=== PATIENT | female | born 1980 | race Caucasian/White ===

== ENCOUNTER 2017-04-21 17:40 | Emergency (ER) | payer OTHER ==
[~2017-04-21] VITALS: Ht 172.7 cm; Wt 68.0 kg
[~2017-04-21 17:40] MED LIST: CEPH500C PO; DCS100C PO; DIAZ5TAB49; ENXP40I.4 SC; FLC1T PO; FURO20TA4 PO; HYDR-3720 PO; HYZAAR; IBP800T PO; NITR-65 PO; OXYC1TAB12 PO; PHEN-452 PO; PREN1TAB39 PO; PRM25T PO; ZLP10T
--- NOTE | 2017-04-21 18:07 | ED Lower Extremity ---
General Chief Complaint: Lower Extremity Stated Complaint: R LEG SWELLING/DISCOMFORT Source: patient Exam Limitations: no limitations History of Present Illness Time seen by provider: 18:01 Initial Comments Patient states that for the last several days she's had progressively worsening pain in the anterior portion of her right lower leg. 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 She attributes this pain from her workplace but this pain is made her walk funny and the last day she says she's felt a gurgling sensation in her lower right leg and it started swelling and feeling painful in her calf. She is concerned because she felt a little short of breath and she is not sure if that was from anxiety from worry about having a DVT. 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 She has factor V Leiden but is not currently on any kind of blood thinners. She says it is no redness but she's felt knot about mcfp down her calf in the back. Allergies and Home Medications Allergies Coded Allergies: morphine (Verified Allergy, Unknown, 06/03/06) Home Medications Cephalexin Monohydrate 500 Mg Capsule, 1 EACH PO TID, #15 Ref 0 Prescribed by: DANAY PIEDRA on 05/02/15 1603 Diazepam 10 Mg Tablet, 10 MG PO PRN, (Reported) Docusate Sodium 100 Mg Cap, 100 MG PO BID, #60 Prescribed by: RANDY MURRIETA on 04/29/15 0821 Enoxaparin 40 Mg/0.4 Ml Soln, 40 MG SC DAILY, (Reported) Ibuprofen 800 Mg Tab, 800 MG PO Q6H, #60 Prescribed by: RANDY MURRIETA on 04/29/15 0821 Oxycodone Hcl/Acetaminophen 1 Tab Tablet, 1-2 TAB PO Q4H PRN for PAIN, #60 Prescribed by: RANDY MURRIETA on 04/29/15 0821 Vits W-Ca,Fe,Fa(<1MG) 1 Each Tablet, 1 TAB PO DAILY, (Reported) Constitutional: No chills, No diaphoresis, No malaise Respiratory: No cough, short of breath (mild while she felt anxious but not presently.), No wheezing Cardiovascular: No chest pain, No palpitations Gastrointestinal: No abdominal pain, No constipation, No diarrhea, No nausea Genitourinary: No discharge, No dysuria : No Musculoskeletal: back pain (right lower muscle stiffness), muscle stiffness Skin: No change in color, No pruritus, No rash Psychiatric/Neurological: Anxiety Past Yxdmkak-Uwyxgh-Taqmks Hx Patient Social History Recent Foreign Travel: No Contact w/Someone Who Travel: No Immunizations Up To Date Tetanus Booster (TDap): Less than 5yrs PED Vaccines UTD: Yes Date of Influenza Vaccine: Aug 14, 2011 Surgeries HX Surgeries: Yes ([place] Teeth 2008, Lap Chol 2005, CS 1998, EGD 1998, LAP BAND 2009) Surgeries: Section Respiratory Hx Respiratory Disorders: No Cardiovascular Hx Cardiac Disorders: No Neurological Hx Neurological Disorders: No Reproductive System Hx Reproductive Disorders: No Sexually Transmitted Disease: No HIV/AIDS: No Female Reproductive Disorders: Denies Genitourinary Hx Genitourinary Disorders: No Gastrointestinal Hx Gastrointestinal Disorders: No Musculoskeletal Hx Musculoskeletal Disorders: No Endocrine Hx Endocrine Disorders: No HEENT HX ENT Disorders: Yes HEENT Disorders: Cataract Cancer Hx Cancer: No Psychosocial Hx Psychiatric Problems: Yes Behavioral Health Disorders: Anxiety Integumentary HX Skin/Integumentary Disorder: No Blood Transfusions Hx 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 ) Family Medical History Significant Family History: No Pertinent Family Hx Family Medial History: Cardiovascular disease 19 FATHER Cataracts 19 MOTHER Congenital heart disease 19 FATHER Diabetes mellitus 19 FATHER Fibrocystic disease of breast 19 MOTHER Headache disorder G8 BROTHER Hypercholesterolemia 19 MOTHER Hypertension G8 BROTHER Psychosocial problem 19 MOTHER Respiratory disorder 19 MOTHER Thyroid disease 19 MOTHER Visual disorder 19 MOTHER No Family History of: AIDS Abdominal aortic aneurysm Dmitri's disease Alcoholism Alzheimer's disease Aphasia Arthritis Asthma Cancer of mouth Colon cancer Completed stroke Congenital disease Coronary thrombosis Cystic fibrosis Deafness or hearing loss Dementia Drug abuse Dysphasia Gastroenteritis Glaucoma Infertility Kidney disease Myocardial infarction Neoplasm Not obtainable due to adoption Osteoporosis Parkinson's disease Prostate cancer Seizure disorder Severe allergy Tuberculosis Physical Exam Vital Signs Vital Sign - Last 12Hours 04/21/17 17:57 Temp 98.5 Pulse 93 Resp 18 B/P (MAP) 123/88 Pulse Ox 98 O2 Delivery Room Air Capillary Refill : General Appearance: WD/WN, no apparent distress Neck: non-tender, normal inspection Cardiovascular: normal peripheral pulses, regular rate, rhythm, no edema, no murmur Respiratory: lungs clear, normal breath sounds Back: normal inspection, no CVA tenderness, no vertebral tenderness, muscle spasm (right paralumbar muscles) Legs: left leg non-tender, left leg normal inspection, left leg normal range of motion, left leg no evidence of injury, right leg nodules, right leg soft tissue tenderness (left calf 15-1/8 inches; right calf 15-1/4 inches. Homans sign positive right side) Knees: bilateral knee non-tender, bilateral knee normal inspection, bilateral knee normal range of motion Feet: left foot non-tender, bilateral foot normal inspection, bilateral foot normal range of motion, left foot no evidence of injury, right foot soft tissue tenderness (dorsum) Neurologic/Tendon: normal sensation, normal tendon functions Neurologic/Psychiatric: alert, oriented x 3 Skin: normal color, warm/dry Lymphatic: no adenopathy Progress/Results/Core Measures Results/Orders My Orders Orders - JEROME DE LOS SANTOS Venous Lower Ext Rt (04/21/17 18:07) Vital Signs/I&O Vital Sign - Last 12Hours 04/21/17 17:57 Temp 98.5 Pulse 93 Resp 18 B/P (MAP) 123/88 Pulse Ox 98 O2 Delivery Room Air Progress Note #1: Time: 18:13 Progress Note Wells criteria is borderline based on my belief that there is just as likely a possibility this symptoms are due to musculoskeletal strain sprain. However a d- dimer will not likely be useful as she has factor V Leiden and a d-dimer may be positive much more frequently than somebody without factor V Leiden. We'll go ahead and obtain ultrasound of the lower extremity. Progress Note #2: Time: 19:05 Progress Note Offered her Vistaril for anxiety. Patient says she has Valium at home but is not eating anything right now. Offered her a muscle relaxant for her low back pain but she declined at this time. Offered her TV remote for distraction and she accepted this. Diagnostic Imaging Diagonstic Imaging: Ultrasound Plain Films/CT/US/NM/MRI: leg (right) Comments [facility] [place], [place] NAME: EMILIANA LANDA MED REC#: [id number] PT STATUS: REG ER : 1980 PHYSICIAN: JEROME DE LOS SANTOS MD ADMIT DATE: 04/21/17/ER Draft Date of Exam:04/21/17 US VENOUS LOWER EXT RT PROCEDURE: US right lower extremity venous. TECHNIQUE: Multiple real-time grayscale images were obtained over the right lower extremity in various projections. Additional duplex Doppler and color Doppler images were also obtained. INDICATION: Right calf pain. COMPARISON: None. FINDINGS: The right common femoral vein, superficial femoral vein, profunda femoris, and popliteal veins are normal. These vessels show normal compressibility, color flow, and Doppler augmentation. The deep calf veins, although not very well seen, demonstrate no distinct intraluminal thrombus. IMPRESSION: Negative venous Doppler of the right lower extremity. Dictated on workstation # [id number] Dict: 04/21/171923 Trans: 04/21/171925 DENIS [id number] Interpreted by: RIAN GONCALVES MD Electronically signed by: Reviewed: Reviewed by Me Departure Impression Impression: Primary Impression: Calf swelling Additional Impression: Lumbar back sprain Qualified Codes: S33.5XXA - Sprain of ligaments of lumbar spine, initial encounter Disposition: 01 HOME, SELF-CARE Condition: Stable Departure-Patient Inst. Decision time for Depature: 19:53 Referrals: WALTER BUTLER MD (PCP/Family) Primary Care Physician Patient Instructions: Deep Vein Thrombosis (Blood Clots in the Legs) (DC) Add. Discharge Instructions: Drink plenty of fluids and avoid smoke exposure. Follow-up with your PCP if you have any other questions. If you have any swelling of the leg, bright red skin or knots that you can feel in your leg that are new and painful; especially with shortness of breath or chest pain then you should return to the ER. For your back pain you should use a heating pad as often as it helps as well as Tylenol 1000 milligrams every 8 hours as needed. I will send some Flexeril which can be used once every 8 hours. Note that this medicine can make you feel drowsy and should not be combined with alcohol. Do not operate heavy machinery or drive long distances while under the influence of Flexeril. All discharge instructions reviewed with patient and/or family. Voiced understanding. Scripts Cyclobenzaprine HCl (Cyclobenzaprine HCl) 10 Mg Tablet 10 MG PO Q8H Y for SPASMS, #15 TAB 0 Refills Prov: JEROME DE LOS SANTOS 04/21/17 Copy Copies To 1: WALTER BUTLER MD, TITUS J Apr 21, 2017 18:07
[2017-04-21] MEDS ORDERED: DIAZ10TA PO (18:26)
--- NOTE | 2017-04-21 19:26 | Diagnostic Imaging Report ---
PROCEDURE: US right lower extremity venous. TECHNIQUE: Multiple real-time grayscale images were obtained over the right lower extremity in various projections. Additional duplex Doppler and color Doppler images were also obtained. INDICATION: Right calf pain. COMPARISON: None. FINDINGS: The right common femoral vein, superficial femoral vein, profunda femoris, and popliteal veins are normal. These vessels show normal compressibility, color flow, and Doppler augmentation. The deep calf veins, although not very well seen, demonstrate no distinct intraluminal thrombus. IMPRESSION: Negative venous Doppler of the right lower extremity. Dictated by: Dictated on workstation # [id number]
[2017-04-21] MEDS ORDERED: CYCL10TA9 PO (19:53)
[2017-04-21 20:00] VITALS: BP 122/88
== END 2017-04-21 20:00 | disposition home or self-care (01) ==
LOC: EDUNIT# 17:40 → ER 17:41
DX: S33.5XXA Sprain of ligaments of lumbar spine, initial encounter (principal); F41.9 Anxiety disorder, unspecified; Z82.49 Family history of ischemic heart disease and other diseases of the circulatory system; Z86.718 Personal history of other venous thrombosis and embolism; X50.1XXA Overexertion from prolonged static or awkward postures, initial encounter; Y92.89 Other specified places as the place of occurrence of the external cause
CPT/HCPCS: 99283

== ENCOUNTER 2017-09-28 12:55 | Emergency (ER) | payer OTHER ==
[~2017-09-28] VITALS: Ht 172.7 cm; Wt 68.0 kg
[~2017-09-28 12:55] MED LIST changes: +CYCL10TA9 PO; +DIAZ10TA PO
--- OUTSIDE RECORDS SUMMARY | 2017-09-28 13:01 | XMS REPORT | Continuity of Care Document ---
Author Author [facility] Organization [facility] Address Unknown Phone Unavailable Allergies Active Description Code Type Severity Reaction Onset Reported/Identified Relationship to Patient Clinical Status Yes morphine [id number] Drug Allergy Unknown N/A 06/03/2006 Medications There is no data. Problems Date Dx Coded Attending Type Code Diagnosis Diagnosed By 09/26/2013 RANDY ARSHAD MD Ot 724.2 LUMBAGO 09/26/2013 RANDY ARSHAD MD, Ot V57.1 PHYSICAL THERAPY NEC 06/14/2014 RENE PARIS, KOFI Chapin Ot 640.03 THREATEN ABORT-ANTEPART 04/29/2015 RANDY ARSHAD MD Ot 642.41 MILD/NOS PREECLAMP-DELIV 04/29/2015 RANDY ARSHAD MD Ot 654.21 PREV DELIVRY W/ OR W/O MENT ANT 04/29/2015 RANDY ARSHAD MD Ot 659.61 ELD MULTIGRAVIDA DEL W MENTION OF ANTEPA 04/29/2015 RANDY ARSHAD MD Ot 663.31 CORD ENTANGLE NEC-DELIV 04/29/2015 RANDY ARSHAD MD Ot V06.1 [id number], COMBINED [ 04/29/2015 RANDY ARSHAD MD Ot V12.51 HX-VENOUS THROMBOSIS EMBOLISM 04/29/2015 RANDY ARSHAD MD Ot V27.0 DELIVER-SINGLE LIVEBORN 05/02/2015 DANAY HERNÁNDEZ Ot 349.0 LUMBAR PUNCTURE REACTION 05/02/2015 DANAY HERNÁNDEZ Ot 599.0 URIN TRACT INFECTION NOS 05/02/2015 DANAY HERNÁNDEZ Ot 646.63 INFECTION-ANTEPARTUM 05/02/2015 DANAY HERNÁNDEZ Ot 648.94 OTH CURR COND- 05/02/2015 DANAY HERNÁNDEZ Ot 784.0 HEADACHE 05/04/2015 RANDY ARSHAD MD Ot 642.43 06/08/2015 RANDY ARSHAD MD, Ot 793.89 06/08/2015 RANDY ARSHAD MD, Ot V76.12 06/08/2015 RANDY ARSHAD MD Ot 793.89 06/08/2015 RANDY ARSHAD MD, Ot 642.43 06/05/2016 RANDY ARSHAD MD, Ot 793.89 OTH (ABN) FINDINGS ON RADIOLOGICAL EXAMI 06/05/2016 RANDY ARSHAD MD, Ot V76.12 OTH SCREEN MAMMO-MALIGN NEOPLASM OF ANKUSH 06/05/2016 RANDY ARSHAD MD Ot 793.89 OTH (ABN) FINDINGS ON RADIOLOGICAL EXAMI 06/05/2016 RANDY ARSHAD MD Ot 642.43 MILD/NOS PREECLAMP-ANTEP 06/10/2016 WALTER BUTLER MD Ot H54.60 UNQUALIFIED VISUAL LOSS, ONE EYE, UNSPEC 04/21/2017 JEROME DE LOS SANTOS MD Ot F41.9 ANXIETY DISORDER, UNSPECIFIED 04/21/2017 JEROME DE LOS SANTOS MD Ot M79.604 PAIN IN RIGHT LEG 04/21/2017 JEROME DE LOS SANTOS MD Ot S33.5XXA SPRAIN OF LIGAMENTS OF LUMBAR SPINE, INI 04/21/2017 JEROME DE LOS SANTOS MD Ot X50.1XXA OVEREXERTION FROM PROLONGED STATIC OR AW 04/21/2017 JEROME DE LOS SANTOS MD Ot Y92.[address] OF OCCURRENCE OF 04/21/2017 JEROME DE LOS SANTOS MD Ot Z82.49 FAMILY HX OF ISCHEM HEART DIS AND OTH DI 04/21/2017 JEROME DE LOS SANTOS MD Ot Z86.718 PERSONAL HISTORY OF OTHER VENOUS THROMBO 04/21/2017 RANDY ARSHAD MD Ot 793.89 OTH (ABN) FINDINGS ON RADIOLOGICAL EXAMI 04/21/2017 RANDY ARSHAD MD, Ot V76.12 OTH SCREEN MAMMO-MALIGN NEOPLASM OF [place]KUSH 04/21/2017 RANDY ARSHAD MD Ot 793.89 OTH (ABN) FINDINGS ON RADIOLOGICAL EXAMI 04/21/2017 RANDY ARSHAD MD Ot 642.43 MILD/NOS PREECLAMP-ANTEP 04/21/2017 WALTER BUTLER MD Ot H54.60 UNQUALIFIED VISUAL LOSS, ONE EYE, UNSPEC 04/24/2017 JEROME DE LOS SANTOS MD Ot F41.9 ANXIETY DISORDER, UNSPECIFIED 04/24/2017 JEROME DE LOS SANTOS MD Ot M79.604 PAIN IN RIGHT LEG 04/24/2017 JEROME DE LOS SANTOS MD Ot S33.5XXA SPRAIN OF LIGAMENTS OF LUMBAR SPINE, INI 04/24/2017 JEROME DE LOS SANTOS MD Ot X50.1XXA OVEREXERTION FROM PROLONGED STATIC OR AW 04/24/2017 JEROME DE LOS SANTOS MD Ot Y92.[address] OF OCCURRENCE OF 04/24/2017 JEROME DE LOS SANTOS MD Ot Z82.49 FAMILY HX OF ISCHEM HEART DIS AND OTH DI 04/24/2017 JEROME DE LOS SANTOS MD Ot Z86.718 PERSONAL HISTORY OF OTHER VENOUS THROMBO 04/27/2017 JEROME DE LOS SANTOS MD Ot F41.9 ANXIETY DISORDER, UNSPECIFIED 04/27/2017 JEROME DE LOS SANTOS MD Ot M79.604 PAIN IN RIGHT LEG 04/27/2017 JEROME DE LOS SANTOS MD Ot S33.5XXA SPRAIN OF LIGAMENTS OF LUMBAR SPINE, INI 04/27/2017 JEROME DE LOS SANTOS MD Ot X50.1XXA OVEREXERTION FROM PROLONGED STATIC OR AW 04/27/2017 JEROME DE LOS SANTOS MD Ot Y92.[address] OF OCCURRENCE OF 04/27/2017 JEROME DE LOS SANTOS MD Ot Z82.49 FAMILY HX OF ISCHEM HEART DIS AND OTH DI 04/27/2017 JEROME DE LOS SANTOS MD Ot Z86.718 PERSONAL HISTORY OF OTHER VENOUS THROMBO Procedures Code Description Performed By Performed On 74.1 LOW CERVICAL 04/27/2015 Results There is no data. Encounters ACCT No. Visit Date/Time Discharge Status Pt. Type Provider Facility Loc./Unit Complaint [id number] 04/21/2017 17:41:00 04/21/2017 20:00:00 DIS Emergency MAGALI PARIS, JEROME Bautista [facility] ER R LEG SWELLING/DISCOMFORT [id number] 06/05/2016 15:34:00 06/05/2016 23:59:59 CLS Outpatient WALTER BUTLER MD [facility] RAD UNILATERAL VISION LOSS, RT EYE [id number] 12/03/2015 18:22:00 12/03/2015 23:59:59 CLS Outpatient CLEO BARBOUR [facility] QUICK [id number] 05/02/2015 13:15:00 05/02/2015 16:12:00 DIS Emergency DANAY HERNÁNDEZ [facility] ER HEADACHE FROM CSECTION [id number] 04/26/2015 16:00:00 04/29/2015 16:05:00 DIS Inpatient RANDY ARSHAD MD [facility] LDRP PRE-ECLAMPSIA; PREVIOUS C SECTION [id number] 04/20/2015 12:04:00 04/20/2015 23:59:59 CLS Outpatient RANDY ARSHAD MD [facility] LABNPT MILD OR UNSPECIFIED PRE CLAMPSIA [id number] 06/14/2014 20:05:00 06/14/2014 21:50:00 DIS Emergency KOFI LÓPEZ MD [facility] ER BLEEDING 5 WEEKS [id number] 11/07/2013 08:15:00 11/07/2013 23:59:59 CLS Outpatient RANDY ARSHAD MD [facility] RAD ABNORMAL MAMMO [id number] 10/21/2013 11:01:00 10/21/2013 23:59:59 CLS Outpatient RANDY ARSHAD MD [facility] RAD SCREENING [id number] 08/29/2013 16:11:00 09/26/2013 12:08:00 DIS Outpatient RANDY ARSHAD MD [facility] REHAB LOW BACK PAIN
[2017-09-28] MEDS ORDERED: RX-AMOXICILLIN 500 MG CAP #3 PPK PO STA (13:25)
[2017-09-28] MEDS ORDERED: RX-HYDROCODONE/APAP 5/325 MG #4 TAB PK PO PRN (13:30)
--- NOTE | 2017-09-28 13:33 | ED EENT ---
History of Present Illness General Chief Complaint: Dental Problems/Pain Stated Complaint: DENTAL PAIN,CONGESTION Nursing Triage Note: PT REPORTS R EAR PAIN AND TOOTH PAIN. Source: patient, other Exam Limitations: no limitations History of Present Illness Time seen by provider: 13:18 Initial Comments Patient presents to ER by private conveyance with chief complaint that for about a month now she's been having pain off-and-on in her right lower jaw molars. She has surgery scheduled within 1-2 weeks for this dental pain. However she went diving/snorkeling a couple days ago and when she went on a particular a deep dive probably 15-20 feet she says she felt a lot of shearing pain on the right side of her face and a popping sensation in her ear. She's never had traumatic injury to her ear before. She is to have a lot of problems with ear infections as a kid she says. She never had tubes. She has not had any discharge from the ear or tooth. She has tried Tylenol Motrin Orajel and Aleve without any recourse. She cannot sleep because the pain. 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 She denies any fevers chills nausea vomiting or fatigue area and she is having a cough, sore throat and nasal congestion. No wheezing or shortness of breath. No history of asthma, COPD, lung cancer. She quit smoking years ago. Allergies and Home Medications Allergies Coded Allergies: morphine (Verified Allergy, Unknown, 06/03/06) Home Medications Cephalexin Monohydrate 500 Mg Capsule, 1 EACH PO TID, #15 Ref 0 Prescribed by: DANAY PIEDRA on 05/02/15 1603 Cyclobenzaprine HCl 10 Mg Tablet, 10 MG PO Q8H PRN for SPASMS, #15 Ref 0 Prescribed by: JEROME DE LOS SANTOS on 04/21/171952 Diazepam 10 Mg Tablet, 10 MG PO PRN, (Reported) Docusate Sodium 100 Mg Cap, 100 MG PO BID, #60 Prescribed by: RANDY MURRIETA on 04/29/15 0821 Enoxaparin 40 Mg/0.4 Ml Soln, 40 MG SC DAILY, (Reported) Ibuprofen 800 Mg Tab, 800 MG PO Q6H, #60 Prescribed by: RANDY MURRIETA on 04/29/15 0821 Oxycodone Hcl/Acetaminophen 1 Tab Tablet, 1-2 TAB PO Q4H PRN for PAIN, #60 Prescribed by: RANDY MURRIETA on 04/29/15 08 Vits W-Ca,Fe,Fa(<1MG) 1 Each Tablet, 1 TAB PO DAILY, (Reported) Review of Systems Constitutional: No chills, No fever, No malaise Eyes: Denies Blurred Vision, Denies Drainage Ears: Denies Dizziness, Pain (r) Nose: denies clots, congestion Mouth: pain, denies swelling, denies purulent discharge Throat: denies pain, denies swelling, hoarse Respiratory: cough, No phlegm, No short of breath, No wheezing Cardiovascular: No palpitations, No syncope Gastrointestinal: No nausea, No vomiting Past Ftbndmv-Fndexm-Pzalxz Hx Patient Social History Alcohol Use: Denies Use Recreational Drug Use: No Smoking Status: Former Smoker Type Used: Electronic/Vapor Former Smoker, Quit: Oct 05, 2007 2nd Hand Smoke Exposure: No Recent Foreign Travel: No Contact w/Someone Who Travel: No Recent Infectious Disease Expo: No Recent Hopitalizations: No Immunizations Up To Date Tetanus Booster (TDap): Less than 5yrs PED Vaccines UTD: Yes Date of Influenza Vaccine: Aug 14, 2011 Seasonal Allergies Seasonal Allergies: No Surgeries History of Surgeries: Yes ([place] Teeth, EGD, LAP BAND ) Surgeries: Section, Gallbladder Respiratory History of Respiratory Disorde: No Cardiovascular History of Cardiac Disorders: No Neurological History of Neurological Disord: No Reproductive System Hx Reproductive Disorders: No Sexually Transmitted Disease: No HIV/AIDS: No Female Reproductive Disorders: Denies Genitourinary History of Genitourinary Disor: No Gastrointestinal History of Gastrointestinal Di: No Musculoskeletal History of Musculoskeletal Dis: No Endocrine History of Endocrine Disorders: No HEENT History of HEENT Disorders: Yes HEENT Disorders: Cataract Cancer History of Cancer: No Psychosocial History of Psychiatric Problem: Yes Behavioral Health Disorders: Anxiety Integumentary History of Skin or Integumenta: No Blood Transfusions History of 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 ) Family Medical History Significant Family History: No Pertinent Family Hx Family Medial History: Cardiovascular disease 19 FATHER Cataracts 19 MOTHER Congenital heart disease 19 FATHER Diabetes mellitus 19 FATHER Fibrocystic disease of breast 19 MOTHER Headache disorder G8 BROTHER Hypercholesterolemia 19 MOTHER Hypertension G8 BROTHER Psychosocial problem 19 MOTHER Respiratory disorder 19 MOTHER Thyroid disease 19 MOTHER Visual disorder 19 MOTHER No Family History of: AIDS Abdominal aortic aneurysm [place]'s disease Alcoholism Alzheimer's disease Aphasia Arthritis Asthma Cancer of mouth Colon cancer Completed stroke Congenital disease Coronary thrombosis Cystic fibrosis Deafness or hearing loss Dementia Drug abuse Dysphasia Gastroenteritis Glaucoma Infertility Kidney disease Myocardial infarction Neoplasm Not obtainable due to adoption Osteoporosis Parkinson's disease Prostate cancer Seizure disorder Severe allergy Tuberculosis Physical Exam Vital Signs Vital Sign - Last 12Hours 09/28/17 13:05 Temp 97.3 Pulse 74 Resp 16 B/P (MAP) 148/84 (105) Pulse Ox 98 O2 Delivery Room Air General Appearance: WD/WN, mild distress Eyes: bilateral eye normal inspection, bilateral eye PERRL, bilateral eye EOMI Ears: bilateral ear auricle normal, bilateral ear canal normal, bilateral ear TM normal, bilateral ear other (clear mucoid effusion seen bilaterally. Scant injected TMs bilateral) Nose: normal inspection, No active bleeding, No discharge Mouth/Throat: pharynx normal, dental tenderness, other (right lower molar with large cavity) Neck: non-tender, normal inspection, lymphadenopathy (R) (shotty), lymphadenopathy (L) (anterior shotty) Cardiovascular: normal peripheral pulses, regular rate, rhythm Respiratory: chest non-tender, lungs clear, normal breath sounds, no respiratory distress, no accessory muscle use Neurologic/Psychiatric: alert, normal mood/affect, oriented x 3 Skin: normal color, warm/dry Progress/Results/Core Measures Results/Orders Vital Signs/I&O Vital Sign - Last 12Hours 09/28/17 13:05 Temp 97.3 Pulse 74 Resp 16 B/P (MAP) 148/84 (105) Pulse Ox 98 O2 Delivery Room Air Blood Pressure Mean: 105 Departure Impression Impression: Primary Impression: Dental caries Additional Impressions: Otitis media, serous, acute Qualified Codes: H65.01 - Acute serous otitis media, right ear Viral upper respiratory illness Disposition: HOME, SELF-CARE Condition: Stable Departure-Patient Inst. Decision time for Depature: 13:31 Referrals: WALTER BUTLER MD (PCP/Family) Primary Care Physician Patient Instructions: Serous Otitis Media (DC) Add. Discharge Instructions: For your pain and would like to take 2 capsules of Aleve twice a day. It is okay to use Aleve PM if you want. You may also use Tylenol 1000 mg every 8 hours as needed for breakthrough pain. Ice is okay as needed. Use the viscous lidocaine gauze applied directly over the tooth as needed to control your pain or Orajel. Start the antibiotics 1 capsule 3 times a day with food for 10 days. If your pain is still unbearable you may use the hydrocodone one tablet every 6 hours to control your pain but this can cause constipation and drowsiness so do not operate heavy machinery or drive on long road trips under the influence of hydrocodone. For the fluid in your ears you should start taking Flonase or Nasacort one spray each nostril twice a day for the next 2 weeks. All discharge instructions reviewed with patient and/or family. Voiced understanding. Scripts Hydrocodone/Acetaminophen (Hydrocodon -Acetaminophen 5-325) 1 Each Tablet 1 EACH PO Q6H Y for BREAKTHROUGH PAIN, #15 TAB 0 Refills Prov: JEROME DE LOS SANTOS 09/28/17 Amoxicillin (Amoxicillin) 500 Mg Capsule 500 MG PO TID for 10 Days, #28 CAP 0 Refills Prov: JEROME DE LOS SANTOS 09/28/17 Copy Copies To 1: WALTER BUTLER MD, TITUS J Sep 28, 2017 13:33
[2017-09-28] MEDS ORDERED: HYDR-3812 PO (13:35)
[2017-09-28] MEDS ORDERED: AMOX500C2 PO (13:35)
[2017-09-28 13:42] VITALS: BP 148/84
[2017-09-28] MEDS ORDERED: LIDOCAINE 2% VISCOUS 15 ML UDC PO SCH (16:00)
== END 2017-09-28 13:42 | disposition home or self-care (01) ==
LOC: EDUNIT# 12:55 → ER 12:56
DX: K02.9 Dental caries, unspecified (principal); H65.01 Acute serous otitis media, right ear; J06.9 Acute upper respiratory infection, unspecified; Z87.891 Personal history of nicotine dependence; Z98.84 Bariatric surgery status; Z87.59 Personal history of other complications of pregnancy, childbirth and the puerperium; Z82.49 Family history of ischemic heart disease and other diseases of the circulatory system
CPT/HCPCS: 99282

== ENCOUNTER 2018-04-02 11:00 | Emergency (ER) | payer OTHER ==
[~2018-04-02] VITALS: Ht 172.7 cm; Wt 68.0 kg
[~2018-04-02 11:00] MED LIST changes: +ACHD5005 PO; +AMOX500C2 PO
[2018-04-02] MEDS ORDERED: ASPIRIN 81 MG CHEW (CHILDREN'S ASA) PO ONE (11:15)
[2018-04-02 11:25] LABS: BASOPHILS % (AUTO) 1 % (0-10); EOSINOPHILS # (AUTO) 0.1 10^3/uL (0.0-0.3); EOSINOPHILS % (AUTO) 1 % (0-10); HEMATOCRIT 46 % (35-52); HEMOGLOBIN 15.6 G/DL (11.5-16.0); LYMPHOCYTES # (AUTO) 2.7 X 10^3 (1.0-4.0); LYMPHOCYTES % (AUTO) 35 % (12-44); MEAN CORPUSCULAR HEMOGLOBIN 29 PG (25-34); MEAN CORPUSCULAR HGB CONC 34 G/DL (32-36); MEAN CORPUSCULAR VOLUME 85 FL (80-99); MEAN PLATELET VOLUME 11.4 FL (7.4-10.4); MONOCYTES # (AUTO) 0.4 X 10^3 (0.0-1.0); MONOCYTES % (AUTO) 5 % (0-12); NEUTROPHILS # (AUTO) 4.5 X 10^3 (1.8-7.8); NEUTROPHILS % (AUTO) 59 % (42-75); PLATELET COUNT 222 10^3/uL (130-400); RED BLOOD COUNT 5.41 10^6/uL (4.35-5.85); WHITE BLOOD COUNT 7.7 10^3/uL (4.3-11.0)
--- NOTE | 2018-04-02 11:34 | ED Chest Pain ---
General Chief Complaint: Chest Pain Stated Complaint: CHEST/LEFT ARM PAIN SOA Nursing Triage Note: Pt reports having chest pain x 4 days ago, states that feels like anxiety and valium helped initially and allowed for deep breaths. reporting that yesterday pain started radiating into left neck and down arm. Pt sent over from dr. butler. Nursing Sepsis Screen: No Definite Risk Source: patient Exam Limitations: no limitations History of Present Illness Date Seen by Provider: Apr 02, 2018 Time Seen by Provider: 11:32 Initial Comments To ER with left upper chest pain intermittent for the past 4 days. She initially believe this to be due to anxiety as she does have troubles with anxiety. She took her usual dose of Valium and seemed to improve and went away on the day 1. It then recurred yesterday and has been constant since yesterday. it is in the left upper chest, she feels as though a knife is stabbing her. It radiates up into the left side of her neck and down to the left arm. she is unsure whether she feels short of breath or whether she is scared to take a deep breath because of the pain that it brings about. She has had a productive cough following a upper respiratory infection about a month ago No fevers or chills. She is a smoker. She also has factor V Leiden. She denies any unilateral leg swelling. She is not on anticoagulant. Timing/Duration: intermittent Severity/Quality: moderate Radiation: no radiation Activities at Onset: none Prior CP/Workup: no prior chest pain ASA po HAND WOVEN [employer] MENDER: No NTG SL HAND WOVEN [employer] MENDER: No Associated Symptoms: shortness of breath Allergies and Home Medications Allergies Coded Allergies: morphine (Verified Allergy, Unknown, 06/03/06) Home Medications Amoxicillin 500 Mg Capsule, 500 MG PO TID Prescribed by: JEROME DE LOS SANTOS on 09/28/17 1335 Cefuroxime Axetil 250 Mg Tablet, 250 MG PO BID Prescribed by: VINCE RODRIGUEZ on 04/02/18 1211 Cephalexin Monohydrate 500 Mg Capsule, 1 EACH PO TID Prescribed by: DANAY PIEDRA on 05/02/15 1603 Cyclobenzaprine HCl 10 Mg Tablet, 10 MG PO Q8H PRN for SPASMS Prescribed by: JEROME DE LOS SANTOS on 04/21/17 195 Diazepam 10 Mg Tablet, 10 MG PO PRN, (Reported) Docusate Sodium 100 Mg Cap, 100 MG PO BID Prescribed by: RANDY MURRIETA on 04/29/15 08 Enoxaparin 40 Mg/0.4 Ml Soln, 40 MG SC DAILY, (Reported) Hydrocodone Bit/Acetaminophen 1 Each Tablet, 1 EACH PO Q6H PRN for BREAKTHROUGH PAIN Prescribed by: JEROME DE LOS SANTOS on 09/28/17 1335 Ibuprofen 800 Mg Tab, 800 MG PO Q6H Prescribed by: RANDY MURRIETA on 04/29/15 08 Methylprednisolone 4 Mg Tab.ds.pk, 4 MG PO UD Prescribed by: VINCE RODRIGUEZ on 04/02/18 1210 Oxycodone Hcl/Acetaminophen 1 Tab Tablet, 1-2 TAB PO Q4H PRN for PAIN Prescribed by: RANDY MURRIETA on 04/29/15 08 Vits W-Ca,Fe,Fa(<1MG) 1 Each Tablet, 1 TAB PO DAILY, (Reported) Patient Home Medication List Home Medication List Reviewed: Yes Review of Systems Constitutional: see HPI EENTM: No Symptoms Reported Respiratory: See HPI, Cough Cardiovascular: See HPI, Chest Pain Gastrointestinal: No Symptoms Reported Genitourinary: No Symptoms Reported Musculoskeletal: no symptoms reported Skin: no symptoms reported Psychiatric/Neurological: No Symptoms Reported Endocrine: No Symptoms Reported Hematologic/Lymphatic: No Symptoms Reported Past Qhzactq-Xonvdp-Ihvsxg Hx Patient Social History Alcohol Use: Rarely Uses Recreational Drug Use: Yes Drug of Choice: Marijuana Smoking Status: Current Someday Smoker Type Used: Cigarettes, Electronic/Vapor Former Smoker, Quit: Oct 05, 2007 2nd Hand Smoke Exposure: No Recent Foreign Travel: No Contact w/Someone Who Travel: No Recent Infectious Disease Expo: No Recent Hopitalizations: No Physical Abuse: No Sexual Abuse: No Mistreated: No Fear: No Immunizations Up To Date Tetanus Booster (TDap): Less than 5yrs PED Vaccines UTD: Yes Date of Influenza Vaccine: Aug 14, 2011 Seasonal Allergies Seasonal Allergies: No Past Medical History Surgeries: Yes ([place] Teeth, EGD, LAP BAND ) Section, Gallbladder Respiratory: No Cardiac: No Neurological: Yes Meningitis : No Reproductive Disorders: No Female Reproductive Disorders: Denies Sexually Transmitted Disease: No HIV/AIDS: No Genitourinary: No Gastrointestinal: No Musculoskeletal: No Endocrine: No HEENT: Yes Cataract Cancer: No Psychosocial: Yes Anxiety Nursing Suicide Risk Score: 1 Integumentary: No 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 ) Family Medical History Cardiovascular disease 19 FATHER Cataracts 19 MOTHER Congenital heart disease 19 FATHER Diabetes mellitus 19 FATHER Fibrocystic disease of breast 19 MOTHER Headache disorder G8 BROTHER Hypercholesterolemia 19 MOTHER Hypertension G8 BROTHER Psychosocial problem 19 MOTHER Respiratory disorder 19 MOTHER Thyroid disease 19 MOTHER Visual disorder 19 MOTHER No Family History of: AIDS Abdominal aortic aneurysm Dmitri's disease Alcoholism Alzheimer's disease Aphasia Arthritis Asthma Cancer of mouth Colon cancer Completed stroke Congenital disease Coronary thrombosis Cystic fibrosis Deafness or hearing loss Dementia Drug abuse Dysphasia Gastroenteritis Glaucoma Infertility Kidney disease Myocardial infarction Neoplasm Not obtainable due to adoption Osteoporosis Parkinson's disease Prostate cancer Seizure disorder Severe allergy Tuberculosis No Pertinent Family Hx Physical Exam Vital Signs Vital Signs - First Documented 04/02/18 11:12 Pulse 78 Resp 18 B/P (MAP) 135/100 (112) Pulse Ox 99 O2 Delivery Room Air Capillary Refill : Less Than 3 Seconds General Appearance: No Apparent Distress HEENT: PERRL/EOMI, TMs Normal Neck: Full Range of Motion, Normal Inspection Respiratory: Normal Breath Sounds, No Accessory Muscle Use, No Respiratory Distress Cardiovascular: Regular Rate, Rhythm, Normal Peripheral Pulses Gastrointestinal: Normal Bowel Sounds, Non Tender, Soft Extremity: Normal Capillary Refill, Normal Inspection Neurologic/Psychiatric: Alert, Oriented x3 Skin: Normal Color, Warm/Dry Progress/Results/Core Measures Results/Orders Lab Results Laboratory Tests Test 04/02/18 11:15 04/02/18 12:20 Range/Units White Blood Count 7.7 4.3-11.0 10^3/uL Red Blood Count 5.41 4.35-5.85 10^6/uL Hemoglobin 15.6 11.5-16.0 G/DL Hematocrit 46 35-52 % Mean Corpuscular Volume 85 80-99 FL Mean Corpuscular Hemoglobin 29 25-34 PG Mean Corpuscular Hemoglobin Concent 34 32-36 G/DL Red Cell Distribution Width 15.0 H 10.0-14.5 % Platelet Count 222 130-400 10^3/uL Mean Platelet Volume 11.4 H 7.4-10.4 FL Neutrophils (%) (Auto) 59 42-75 % Lymphocytes (%) (Auto) 35 12-44 % Monocytes (%) (Auto) 5 0-12 % Eosinophils (%) (Auto) 1 0-10 % Basophils (%) (Auto) 1 0-10 % Neutrophils # (Auto) 4.5 1.8-7.8 X 10^3 Lymphocytes # (Auto) 2.7 1.0-4.0 X 10^3 Monocytes # (Auto) 0.4 0.0-1.0 X 10^3 Eosinophils # (Auto) 0.1 0.0-0.3 10^3/uL Basophils # (Auto) 0.0 0.0-0.1 10^3/uL Prothrombin Time 12.5 12.2-14.7 SEC INR Comment 0.9 0.8-1.4 Activated Partial Thromboplast Time 28 24-35 SEC D-Dimer 0.35 0.00-0.49 UG/ML Sodium Level 140 135-145 MMOL/L Potassium Level 4.4 3.6-5.0 MMOL/L Chloride Level 108 H 98-107 MMOL/L Carbon Dioxide Level 24 21-32 MMOL/L Anion Gap 8 5-14 MMOL/L Blood Urea Nitrogen 10 7-18 MG/DL Creatinine 0.78 0.60-1.30 MG/DL Estimat Glomerular Filtration Rate > 60 BUN/Creatinine Ratio 13 Glucose Level 50 *L 70-105 MG/DL Calcium Level 9.4 8.5-10.1 MG/DL Magnesium Level 2.5 H 1.8-2.4 MG/DL Total Bilirubin 0.3 0.1-1.0 MG/DL Aspartate Amino Transf (AST/SGOT) 19 5-34 U/L Alanine Aminotransferase (ALT/SGPT) 13 0-55 U/L Alkaline Phosphatase 56 40-136 U/L Myoglobin 22.2 10.0-92.0 NG/ML Troponin I < 0.30 <0.30 NG/ML B-Type Natriuretic Peptide 31.5 <100.0 PG/ML Total Protein 7.5 6.4-8.2 GM/DL Albumin 4.3 3.2-4.5 GM/DL Glucometer 94 70-110 MG/DL My Orders Orders - VINCE RODRIGUEZ APRN Cbc With Automated Diff (04/02/18 11:11) Magnesium (04/02/18 11:11) Chest 1 View, Ap/Pa Only (04/02/18 11:11) Ekg Tracing (04/02/18 11:11) Cardiac Profile 1 (04/02/18 11:11) Comprehensive Metabolic Panel (04/02/18 11:11) Myoglobin Serum (04/02/18 11:11) Protime With Inr (04/02/18 11:11) Partial Thromboplastin Time (04/02/18 11:11) O2 (04/02/18 11:11) Monitor-Rhythm Ecg Trace Only (04/02/18 11:11) Lipid Panel (04/03/18 06:00) Aspirin Chewable Tablet (Baby Aspirin Ch (04/02/18 11:15) Saline Lock/Iv-Start (04/02/18 11:11) BNP (04/02/18 11:11) Fibrin Degradation Products (04/02/18 11:11) Accucheck Stat ONCE (04/02/18 11:57) Lactated Ringers (Lr 1000 Ml Iv Solution (04/02/18 12:45) Medications Given in ED Current Medications Medications Dose Ordered Sig/Irma Route Start Time Stop Time Status Last Admin Dose Admin Aspirin 324 mg ONCE ONCE PO 04/02/18 11:15 04/02/18 11:16 DC 04/02/18 11:34 324 MG Vital Signs/I&O 04/02/18 11:12 Pulse 78 Resp 18 B/P (MAP) 135/100 (112) Pulse Ox 99 O2 Delivery Room Air Blood Pressure Mean: 112 Progress Progress Note : Progress Note NAME: EMILIANA LANDA [facility] REC#: [id number] PT STATUS: REG ER : 1980 PHYSICIAN: VINCE RODRIGUEZ APRN ADMIT DATE: 04/02/18/ER Signed Date of Exam:04/02/18 CHEST 1 VIEW, AP/PA ONLY INDICATION: Chest pain x4 days pain now radiating into the left neck and down arm.. TECHNIQUE: Single view chest 11:40 AM. CORRELATION STUDY: 01/30/2011 FINDINGS: The heart size, mediastinal configuration and pulmonary vascularity are within normal limits. The lungs are clear with no consolidating infiltrate. There is no significant effusion or pneumothorax. Gastric lap band in the left upper quadrant. IMPRESSION: 1. Negative for acute abnormality of the chest. Dictated by: Dictated on workstation # [id number] Dict: 04/02/18 1156 Trans: 04/02/18 1157 DO [id number] Interpreted by: CASSIE ELIAS DO Electronically signed by: CASSIE ELIAS DO 04/02/18 1157 Departure Communication (Admissions) 1204-her EKG does not show any ischemic changes troponin is negative despite 24 hours of continuous chest pain. Her symptoms of cough and pain with deep breathing support this being pleuritic in nature. She does have risk factor for PE but no unilateral leg swelling and a normal d-dimer and she is neither tachycardic nor hypoxic nor tachypneic. Her fingerstick glucose at bedisde by JADYN guillen was 94. Impression Primary Impression: Pleuritic chest pain Disposition: HOME, SELF-CARE Condition: Stable Departure-Patient Inst. Decision time for Depature: 12:09 Referrals: WALTER BUTLER MD (PCP/Family) Primary Care Physician Patient Instructions: Pleuritic Chest Pain (DC) Add. Discharge Instructions: 1. Medication as directed 2. Follow-up with your doctor next week 3. Return to ER for any worsening chest pain, shortness of breath high fevers or or concerns. All discharge instructions reviewed with patient and/or family. Voiced understanding. Scripts Cefuroxime Axetil (Cefuroxime) 250 Mg Tablet 250 MG PO BID, #14 TAB Prov: VINCE RODRIGUEZ APRN 04/02/18 Methylprednisolone (Medrol) 4 Mg Tab.ds.pk 4 MG PO UD, #1 PKG Prov: VINCE RODRIGUEZ APRN 04/02/18 VINCE RODRIGUEZ APRN Apr 02, 2018 11:34
[2018-04-02 11:44] LABS: INR 0.9 (0.8-1.4); PROTHROMBIN TIME PATIENT 12.5 SEC (12.2-14.7)
[2018-04-02 11:46] LABS: ALANINE AMINOTRANSFERASE 13 U/L (0-55); ALBUMIN 4.3 GM/DL (3.2-4.5); ALKALINE PHOSPHATASE 56 U/L (40-136); BILIRUBIN,TOTAL 0.3 MG/DL (0.1-1.0); BUN/CREATININE RATIO 13; CALCIUM 9.4 MG/DL (8.5-10.1); CARBON DIOXIDE 24 MMOL/L (21-32); CHLORIDE 108 MMOL/L (98-107); CREATININE SERUM 0.78 MG/DL (0.60-1.30); GFR ESTIMATED > 60; MAGNESIUM 2.5 MG/DL (1.8-2.4); POTASSIUM 4.4 MMOL/L (3.6-5.0); SODIUM 140 MMOL/L (135-145); TOTAL PROTEIN 7.5 GM/DL (6.4-8.2)
[2018-04-02 11:52] LABS: MYOGLOBIN SERUM 22.2 NG/ML (10.0-92.0)
[2018-04-02 11:56] LABS: GLUCOSE 50 MG/DL (70-105)
--- NOTE | 2018-04-02 12:00 | Diagnostic Imaging Report ---
INDICATION: Chest pain x4 days pain now radiating into the left neck and down arm.. TECHNIQUE: Single view chest 11:40 AM. CORRELATION STUDY: 01/30/2011 FINDINGS: The heart size, mediastinal configuration and pulmonary vascularity are within normal limits. The lungs are clear with no consolidating infiltrate. There is no significant effusion or pneumothorax. Gastric lap band in the left upper quadrant. IMPRESSION: 1. Negative for acute abnormality of the chest. Dictated by: Dictated on workstation # [id number]
[2018-04-02] MEDS ORDERED: METH4TAB PO (12:10)
[2018-04-02] MEDS ORDERED: CEFU250T80 PO (12:11)
[2018-04-02] MEDS ORDERED: LACTATED RINGERS 1,000 ML IV SCH (12:45)
[2018-04-02 14:36] VITALS: BP 114/82
== END 2018-04-02 14:36 | disposition home or self-care (01) ==
LOC: EDUNIT# 11:00 → ER 11:02
DX: R07.81 Pleurodynia (principal); F41.9 Anxiety disorder, unspecified; D68.2 Hereditary deficiency of other clotting factors; Z87.891 Personal history of nicotine dependence; Z98.890 Other specified postprocedural states; Z87.59 Personal history of other complications of pregnancy, childbirth and the puerperium; Z86.61 Personal history of infections of the central nervous system; Z88.5 Allergy status to narcotic agent
CPT/HCPCS: 36415; 71045; 80053; 82962; 83735; 83874; 83880; 84484; 85025; 85379; 85610; 85730; 93005; 93041; 96360; 96361

== ENCOUNTER 2019-06-30 17:06 | Emergency (ER) | payer BC, OTHER ==
[~2019-06-30] VITALS: Ht 172 cm; Wt 68.0 kg
[~2019-06-30 17:06] MED LIST changes: +CEFU250T80 PO; +METH4TAB PO
--- NOTE | 2019-06-30 17:27 | ED Lower Extremity ---
General Chief Complaint: Lower Extremity Stated Complaint: RIGHT LEG PAIN Nursing Triage Note: STARTED HAVING LEFT LEG PAIN ON THURSDAY THAT IS NOW IN HER RIGHT LEG. HX OF FACTOR FIVE AND BLOOD CLOTS AND THINKS SHE MIGHT HAVE ONE AGAIN. Nursing Sepsis Screen: No Definite Risk Source: patient Exam Limitations: no limitations History of Present Illness Date Seen by Provider: Jun 30, 2019 Time Seen by Provider: 17:25 Initial Comments To ER with reports of pain in the right leg area this pain is from the knee medially spreading up the medial thigh to the groin. This began 2 days ago without known injury. Last week she had pain to the posterior left thigh behind the knee and lower leg. That seems to have resolved. She does have a history of DVT, factor V Leiden, not on chronic anticoagulation at this point. She denies any other complaints. Onset: yesterday Severity: moderate Pain/Injury Location: right leg Method of Injury: unknown Allergies and Home Medications Allergies Coded Allergies: No Known Drug Allergies (Unverified , 06/30/19) Patient Home Medication List Home Medication List Reviewed: Yes Review of Systems Constitutional: see HPI EENTM: see HPI Respiratory: no symptoms reported Cardiovascular: no symptoms reported Genitourinary: no symptoms reported Musculoskeletal: see HPI Skin: no symptoms reported Psychiatric/Neurological: No Symptoms Reported Past Qkmtziw-Nlvvdr-Qutois Hx Patient Social History Alcohol Use: Rarely Uses Recreational Drug Use: Yes Drug of Choice: POT Smoking Status: Current Everyday Smoker Type Used: Cigarettes, Electronic/Vapor Former Smoker, Quit: Oct 05, 2007 2nd Hand Smoke Exposure: No Recent Foreign Travel: No Contact w/Someone Who Travel: No Recent Infectious Disease Expo: No Recent Hopitalizations: No Immunizations Up To Date Tetanus Booster (TDap): Less than 5yrs PED Vaccines UTD: Yes Date of Influenza Vaccine: Aug 14, 2011 Seasonal Allergies Seasonal Allergies: No Past Medical History Surgeries: Yes ([place] Teeth, EGD, LAP BAND ) Section, Gallbladder Respiratory: No Cardiac: No Neurological: Yes Meningitis Last Menstrual Period: Jun 23, 2019 Reproductive Disorders: No Female Reproductive Disorders: Denies Sexually Transmitted Disease: No HIV/AIDS: No Genitourinary: No Gastrointestinal: No Musculoskeletal: No Endocrine: No HEENT: Yes Cataract Cancer: No Psychosocial: Yes Anxiety Integumentary: No 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 ) Family Medical History Cardiovascular disease 19 FATHER Cataracts 19 MOTHER Congenital heart disease 19 FATHER Diabetes mellitus 19 FATHER Fibrocystic disease of breast 19 MOTHER Headache disorder G8 BROTHER Hypercholesterolemia 19 MOTHER Hypertension G8 BROTHER Psychosocial problem 19 MOTHER Respiratory disorder 19 MOTHER Thyroid disease 19 MOTHER Visual disorder 19 MOTHER No Family History of: AIDS Abdominal aortic aneurysm [place]'s disease Alcoholism Alzheimer's disease Aphasia Arthritis Asthma Cancer of mouth Colon cancer Completed stroke Congenital disease Coronary thrombosis Cystic fibrosis Deafness or hearing loss Dementia Drug abuse Dysphasia Gastroenteritis Glaucoma Infertility Kidney disease Myocardial infarction Neoplasm Not obtainable due to adoption Osteoporosis Parkinson's disease Prostate cancer Seizure disorder Severe allergy Tuberculosis No Pertinent Family Hx Physical Exam Vital Signs Vital Signs - First Documented 06/30/19 17:11 Temp 36.6 Pulse 87 Resp 16 B/P (MAP) 146/96 (113) Pulse Ox 97 O2 Delivery Room Air Capillary Refill : Less Than 3 Seconds Height, Weight, BMI Height: 5'8.00" Weight: 150lbs. 0.2oz. [id number]; 22.00 BMI Method:Stated General Appearance: WD/WN, no apparent distress HEENT: PERRL/EOMI, normal ENT inspection Respiratory: no respiratory distress, no accessory muscle use Hips: bilateral hip non-tender, bilateral hip normal inspection, bilateral hip normal range of motion Legs: right leg pain, right leg soft tissue tenderness Knees: bilateral knee non-tender, bilateral knee normal inspection, bilateral knee normal range of motion Ankles: bilateral ankle non-tender, bilateral ankle normal inspection, bilateral ankle normal range of motion Feet: bilateral foot non-tender, bilateral foot normal inspection, bilateral foot normal range of motion Neurologic/Psychiatric: alert, normal mood/affect, oriented x 3 Skin: normal color, warm/dry Progress/Results/Core Measures Results/Orders Lab Results Laboratory Tests Test 06/30/19 17:39 Range/Units White Blood Count 8.8 4.3-11.0 10^3/uL Red Blood Count 5.04 4.35-5.85 10^6/uL Hemoglobin 14.5 11.5-16.0 G/DL Hematocrit 43 35-52 % Mean Corpuscular Volume 84 80-99 FL Mean Corpuscular Hemoglobin 29 25-34 PG Mean Corpuscular Hemoglobin Concent 34 32-36 G/DL Red Cell Distribution Width 14.4 10.0-14.5 % Platelet Count 218 130-400 10^3/uL Mean Platelet Volume 11.1 H 7.4-10.4 FL Neutrophils (%) (Auto) 61 42-75 % Lymphocytes (%) (Auto) 33 12-44 % Monocytes (%) (Auto) 6 0-12 % Eosinophils (%) (Auto) 0 0-10 % Basophils (%) (Auto) 1 0-10 % Neutrophils # (Auto) 5.4 1.8-7.8 X 10^3 Lymphocytes # (Auto) 2.9 1.0-4.0 X 10^3 Monocytes # (Auto) 0.5 0.0-1.0 X 10^3 Eosinophils # (Auto) 0.0 0.0-0.3 10^3/uL Basophils # (Auto) 0.0 0.0-0.1 10^3/uL D-Dimer 0.29 0.00-0.49 UG/ML My Orders Orders - VINCE RODRIGUEZ APRN Cbc With Automated Diff (06/30/19 17:18) Fibrin Degradation Products (06/30/19 17:18) Vital Signs/I&O 06/30/19 17:11 Temp 36.6 Pulse 87 Resp 16 B/P (MAP) 146/96 (113) Pulse Ox 97 O2 Delivery Room Air Blood Pressure Mean: 113 Departure Communication (Admissions) Family Conversation She is particularly tender to palpation to the medial side of the patellar tendon, I would suspect a deep infrapatellar bursitis. 1727-we do not have ultrasound available after 4:30 PM, as such we will start with a CBC and a d-dimer, if d-dimer is elevated we'll empirically treat for a clot with Lovenox until she can have a venous ultrasound tomorrow. Impression Primary Impression: Infrapatellar bursitis of right knee Disposition: HOME, SELF-CARE Condition: Stable Departure-Patient Inst. Decision time for Depature: 18:06 Referrals: WALTER BUTLER MD (PCP/Family) Primary Care Physician Patient Instructions: Bursitis Add. Discharge Instructions: 1. Ice pack to the area Tylenol and ibuprofen for pain control, if pain persists follow-up with your doctor next week, return to ER for any concerns. Copy Copies To 1: WALTER BUTLER MD, PETER J APRN Jun 30, 2019 17:27
[2019-06-30 17:46] LABS: BASOPHILS % (AUTO) 1 % (0-10); EOSINOPHILS % (AUTO) 0 % (0-10); HEMATOCRIT 43 % (35-52); HEMOGLOBIN 14.5 G/DL (11.5-16.0); LYMPHOCYTES # (AUTO) 2.9 X 10^3 (1.0-4.0); LYMPHOCYTES % (AUTO) 33 % (12-44); MEAN CORPUSCULAR HEMOGLOBIN 29 PG (25-34); MEAN CORPUSCULAR HGB CONC 34 G/DL (32-36); MEAN CORPUSCULAR VOLUME 84 FL (80-99); MEAN PLATELET VOLUME 11.1 FL (7.4-10.4); MONOCYTES # (AUTO) 0.5 X 10^3 (0.0-1.0); MONOCYTES % (AUTO) 6 % (0-12); NEUTROPHILS # (AUTO) 5.4 X 10^3 (1.8-7.8); NEUTROPHILS % (AUTO) 61 % (42-75); PLATELET COUNT 218 10^3/uL (130-400); RED CELL DISTRIBUTION WIDTH 14.4 % (10.0-14.5); WHITE BLOOD COUNT 8.8 10^3/uL (4.3-11.0)
--- NOTE | 2019-06-30 18:04 | NUR ---
WARM BLANKET GIVEN TO PTSara CLARKE IN TALKING TO HER AT THIS TIME.
[2019-06-30 18:09] VITALS: BP 146/96
== END 2019-06-30 18:09 | disposition home or self-care (01) ==
LOC: EDUNIT# 17:06 → ER 17:07
DX: M70.41 Prepatellar bursitis, right knee (principal); F41.9 Anxiety disorder, unspecified; F17.210 Nicotine dependence, cigarettes, uncomplicated; F17.290 Nicotine dependence, other tobacco product, uncomplicated; Z86.718 Personal history of other venous thrombosis and embolism; Z79.01 Long term (current) use of anticoagulants; Z86.2 Personal history of diseases of the blood and blood-forming organs and certain disorders involving the immune mechanism; Z82.49 Family history of ischemic heart disease and other diseases of the circulatory system
CPT/HCPCS: 36415; 85025; 85379

== ENCOUNTER → 2019-09-16 | Outpatient (CLI) | payer BC ==
--- NOTE | 2019-09-19 09:23 | Diagnostic Imaging Report ---
INDICATION: Routine screening. COMPARISON: 10/21/2013. TECHNIQUE: 2D and 3D bilateral screening mammography was performed with CAD. FINDINGS: Both breasts are heterogeneously dense, limiting the sensitivity of mammography. Scattered benign-appearing calcifications are noted in both breasts. No mass or malignant appearing microcalcifications are seen. The axillae are unremarkable. IMPRESSION: No mammographic features suspicious for malignancy are identified. ACR BI-RADS Category 2: Benign findings. Result letter will be mailed to the patient. Note: At least 10% of breast cancer is not imaged by mammography. Dictated by: Dictated on workstation # [id number]
== END ==
LOC: RAD 12:39
PROVIDERS: ATTEND Obstetrics & Gynecology
DX: Z12.31 Encounter for screening mammogram for malignant neoplasm of breast (principal)
CPT/HCPCS: 77067

== ENCOUNTER → 2020-03-19 | Outpatient (CLI) | payer BC ==
[2020-03-19 08:42] LABS: BASOPHILS % (AUTO) 0 % (0-10); EOSINOPHILS # (AUTO) 0.1 10^3/uL (0.0-0.3); EOSINOPHILS % (AUTO) 1 % (0-10); HEMATOCRIT 42 % (35-52); HEMOGLOBIN 14.5 G/DL (11.5-16.0); LYMPHOCYTES % (AUTO) 29 % (12-44); MEAN CORPUSCULAR HEMOGLOBIN 30 PG (25-34); MEAN CORPUSCULAR HGB CONC 34 G/DL (32-36); MEAN CORPUSCULAR VOLUME 89 FL (80-99); MEAN PLATELET VOLUME 11.3 FL (7.4-10.4); MONOCYTES # (AUTO) 0.5 X 10^3 (0.0-1.0); MONOCYTES % (AUTO) 7 % (0-12); NEUTROPHILS # (AUTO) 4.2 X 10^3 (1.8-7.8); NEUTROPHILS % (AUTO) 63 % (42-75); PLATELET COUNT 168 10^3/uL (130-400); RED CELL DISTRIBUTION WIDTH 13.8 % (10.0-14.5); WHITE BLOOD COUNT 6.8 10^3/uL (4.3-11.0)
[2020-03-19 09:05] LABS: ALANINE AMINOTRANSFERASE 29 U/L (0-55); ALBUMIN 3.8 GM/DL (3.2-4.5); ALKALINE PHOSPHATASE 45 U/L (40-136); BILIRUBIN,TOTAL 0.4 MG/DL (0.1-1.0); BUN/CREATININE RATIO 16; CALCIUM 8.7 MG/DL (8.5-10.1); CARBON DIOXIDE 22 MMOL/L (21-32); CHLORIDE 108 MMOL/L (98-107); CHOLESTEROL 150 MG/DL (< 200); CREATININE SERUM 0.82 MG/DL (0.60-1.30); GFR ESTIMATED > 60; GLUCOSE 88 MG/DL (70-105); HDL CHOLESTEROL 58 MG/DL (40-60); POTASSIUM 4.1 MMOL/L (3.6-5.0); SODIUM 139 MMOL/L (135-145); TOTAL PROTEIN 6.4 GM/DL (6.4-8.2); TRIGLYCERIDES 39 MG/DL (<150); VLDL CHOLESTEROL 8 MG/DL (5-40)
== END ==
LOC: LAB 08:25
PROVIDERS: ATTEND Physician Assistant
DX: Z00.00 Encounter for general adult medical examination without abnormal findings (principal); I10 Essential (primary) hypertension
CPT/HCPCS: 36415; 80053; 80061; 84443; 85025

== ENCOUNTER → 2020-05-02 | Outpatient (CLI) | payer BC | LOC: LABNPT 06:42 | DX: Z20.828 Contact with and (suspected) exposure to other viral communicable diseases (principal) ==

== ENCOUNTER → 2021-01-23 | Outpatient (CLI) | payer BC ==
--- NOTE | 2021-01-23 11:05 | Diagnostic Imaging Report ---
Indication: Routine screening. Comparison is made with prior mammogram 09/16/2019. 2-D and 3-D bilateral screening mammography was performed with CAD. Both breasts are heterogeneously dense, limiting the sensitivity of mammography. The parenchymal pattern is stable. No mass or malignant appearing microcalcifications are seen. Benign calcifications are noted. Axillae are unremarkable. IMPRESSION: BI-RADS Category 2 No mammographic features suspicious for malignancy are identified. ACR BI-RADS Category 2: Benign findings. Result letter will be mailed to the patient. Note: At least 10% of breast cancer is not imaged by mammography. Dictated by: Dictated on workstation # [id number]
== END ==
LOC: RAD 07:45
PROVIDERS: ATTEND Obstetrics & Gynecology
DX: Z12.31 Encounter for screening mammogram for malignant neoplasm of breast (principal)
CPT/HCPCS: 77063; 77067

== ENCOUNTER → 2021-05-03 | Outpatient (CLI) | payer BC ==
[2021-05-03 08:34] LABS: HEMATOCRIT 44 % (35-52); HEMOGLOBIN 14.9 g/dL (11.5-16.0); MEAN CORPUSCULAR HEMOGLOBIN 30 pg (25-34); MEAN CORPUSCULAR HGB CONC 34 g/dL (32-36); MEAN CORPUSCULAR VOLUME 88 fL (80-99); MEAN PLATELET VOLUME 11.8 fL (9.0-12.2); PLATELET COUNT 180 10^3/uL (130-400); WHITE BLOOD COUNT 5.5 10^3/uL (4.3-11.0)
[2021-05-03 08:42] LABS: ALBUMIN 4.1 GM/DL (3.2-4.5); POTASSIUM 3.9 MMOL/L (3.6-5.0)
[2021-05-03 08:43] LABS: CALCIUM 9.2 MG/DL (8.5-10.1)
[2021-05-03 08:46] LABS: BILIRUBIN,TOTAL 0.6 MG/DL (0.1-1.0)
[2021-05-03 08:48] LABS: CREATININE SERUM 0.95 MG/DL (0.60-1.30)
--- NOTE | 2021-05-03 09:59 | Diagnostic Imaging Report ---
INDICATION: Pain, palpitations. FINDINGS: The lungs are clear. There is no failure, effusion or pneumothorax. Cardiomediastinal and hilar contours normal. No free air beneath the diaphragms. IMPRESSION: Normal 2 view chest. Dictated by: Dictated on workstation # [id number]
== END ==
LOC: CARD 10:15
PROVIDERS: ATTEND Physician Assistant
DX: R00.2 Palpitations (principal); I10 Essential (primary) hypertension; R25.2 Cramp and spasm; R25.1 Tremor, unspecified; R07.9 Chest pain, unspecified
CPT/HCPCS: 36415; 71046; 80053; 80061; 84443; 85027; 86769; 93005; 93225; 93226; 93306

== ENCOUNTER 2021-05-06 13:37 | Emergency (ER) | payer BC ==
[~2021-05-06] VITALS: Ht 172.7 cm; Wt 68.0 kg
[2021-05-06] MEDS ORDERED: ALPRAZolam 0.5 MG (XANAX) TAB PO SCH (13:45)
--- NOTE | 2021-05-06 13:49 | ED Integumentary General ---
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 She has high blood pressure at 178/117. She has palpitations and shaking in her hands. She states this started back in December when she was put on Adderall but she has subsequently stopped all of her medications thinking that they were causing this. Timing/Duration: constant Severity: moderate Associated Symptoms: denies symptoms Allergies and Home Medications Allergies Coded Allergies: No Known Drug Allergies (Unverified , 06/30/19) Patient Home Medication List Home Medication List Reviewed: Yes Review of Systems Review of Systems Constitutional: see HPI EENTM: see HPI Respiratory: see HPI, short of breath Cardiovascular: see HPI, palpitations Genitourinary: no symptoms reported Musculoskeletal: no symptoms reported Skin: no symptoms reported Psychiatric/Neurological: No Symptoms Reported Endocrine: No Symptoms Reported Past Xyqcuav-Jgwzdh-Dkqkra Hx Immunizations Up To Date Tetanus Booster (TDap): Less than 5yrs PED Vaccines UTD: Yes Seasonal Allergies Seasonal Allergies: No Past Medical History Surgeries: Yes ([place] Teeth, EGD, LAP BAND ) Section, Gallbladder Respiratory: No Cardiac: No Neurological: Yes Meningitis Reproductive Disorders: No Female Reproductive Disorders: Denies Sexually Transmitted Disease: No HIV/AIDS: No Genitourinary: No Gastrointestinal: No Musculoskeletal: No Endocrine: No HEENT: Yes Cataract Cancer: No Psychosocial: Yes Anxiety Integumentary: No 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 ) Family Medical History Cardiovascular disease 19 FATHER Cataracts 19 MOTHER Congenital heart disease 19 FATHER Diabetes mellitus 19 FATHER Fibrocystic disease of breast 19 MOTHER Headache disorder G8 BROTHER Hypercholesterolemia 19 MOTHER Hypertension G8 BROTHER Psychosocial problem 19 MOTHER Respiratory disorder 19 MOTHER Thyroid disease 19 MOTHER Visual disorder 19 MOTHER No Family History of: AIDS Abdominal aortic aneurysm Dmitri's disease Alcoholism Alzheimer's disease Aphasia Arthritis Asthma Cancer of mouth Colon cancer Completed stroke Congenital disease Coronary thrombosis Cystic fibrosis Deafness or hearing loss Dementia Drug abuse Dysphasia Gastroenteritis Glaucoma Infertility Kidney disease Myocardial infarction Neoplasm Not obtainable due to adoption Osteoporosis Parkinson's disease Prostate cancer Seizure disorder Severe allergy Tuberculosis No Pertinent Family Hx Physical Exam Vital Signs Capillary Refill : General Appearance: WD/WN, no apparent distress, thin, other (Alert and oriented very pleasant. No distress. Rhythm is normal sinus at 99. Blood pressure little high at 163/98. She is very anxious appearing and anxiety is likely the cause of all of her symptoms however we will exclude other causes from emergent standpoint. She did just have 8048-hour Holter monitor this weekend, echocardiogram on Thursday and EKG.) Neck: non-tender, full range of motion Cardiovascular: no murmur, tachycardia Respiratory: no respiratory distress, no accessory muscle use Gastrointestinal: normal bowel sounds, non tender, soft Neurologic/Psychiatric: alert, normal mood/affect, oriented x 3 Skin: normal color, warm/dry Progress/Results/Core Measures Results/Orders Lab Results Laboratory Tests Test 05/06/21 13:50 Range/Units White Blood Count 6.9 4.3-11.0 10^3/uL Red Blood Count 5.21 H 3.80-5.11 10^6/uL Hemoglobin 15.1 11.5-16.0 g/dL Hematocrit 45 35-52 % Mean Corpuscular Volume 87 80-99 fL Mean Corpuscular Hemoglobin 29 25-34 pg Mean Corpuscular Hemoglobin Concent 33 32-36 g/dL Red Cell Distribution Width 13.0 10.0-14.5 % Platelet Count 188 130-400 10^3/uL Mean Platelet Volume 11.5 9.0-12.2 fL Immature Granulocyte % (Auto) 0 % Neutrophils (%) (Auto) 58 42-75 % Lymphocytes (%) (Auto) 34 12-44 % Monocytes (%) (Auto) 7 0-12 % Eosinophils (%) (Auto) 0 0-10 % Basophils (%) (Auto) 0 0-10 % Neutrophils # (Auto) 4.0 1.8-7.8 10^3/uL Lymphocytes # (Auto) 2.4 1.0-4.0 10^3/uL Monocytes # (Auto) 0.5 0.0-1.0 10^3/uL Eosinophils # (Auto) 0.0 0.0-0.3 10^3/uL Basophils # (Auto) 0.0 0.0-0.1 10^3/uL Immature Granulocyte # (Auto) 0.0 0.0-0.1 10^3/uL D-Dimer 0.40 0.00-0.49 UG/ML Sodium Level 140 135-145 MMOL/L Potassium Level 4.0 3.6-5.0 MMOL/L Chloride Level 107 98-107 MMOL/L Carbon Dioxide Level 20 L 21-32 MMOL/L Anion Gap 13 5-14 MMOL/L Blood Urea Nitrogen 10 7-18 MG/DL Creatinine 0.93 0.60-1.30 MG/DL Estimat Glomerular Filtration Rate 66 BUN/Creatinine Ratio 11 Glucose Level 103 70-105 MG/DL Calcium Level 9.0 8.5-10.1 MG/DL Corrected Calcium 8.8 8.5-10.1 MG/DL Total Bilirubin 0.5 0.1-1.0 MG/DL Aspartate Amino Transf (AST/SGOT) 21 5-34 U/L Alanine Aminotransferase (ALT/SGPT) 19 0-55 U/L Alkaline Phosphatase 47 40-136 U/L Total Protein 7.2 6.4-8.2 GM/DL Albumin 4.2 3.2-4.5 GM/DL My Orders Orders - VINCE RODRIGUEZ APRN Alprazolam Tablet (Xanax Tablet) (05/06/21 13:45) Cbc With Automated Diff (05/06/21 13:46) Comprehensive Metabolic Panel (05/06/21 13:46) Fibrin Degradation Products (05/06/21 13:46) Ekg Tracing (05/06/21 13:49) Departure Communication (Admissions) EKG shows sinus rhythm rate of [address] segment changes no ectopy normal intervals, q wave V1-V2 Impression Primary Impression: Palpitations Additional Impressions: Hypertension Anxiety Disposition: 01 HOME, SELF-CARE Condition: Improved Departure-Patient Inst. Decision time for Depature: 14:50 Referrals: WALTER BUTLER MD (PCP/Family) Primary Care Physician Patient Instructions: Palpitations Copy Copies To 1: WALTER BUTLER MD, PETER J APRN May 06, 2021 13:49
[2021-05-06 14:09] LABS: BASOPHILS % (AUTO) 0 % (0-10); EOSINOPHILS % (AUTO) 0 % (0-10); HEMATOCRIT 45 % (35-52); HEMOGLOBIN 15.1 g/dL (11.5-16.0); LYMPHOCYTES # (AUTO) 2.4 10^3/uL (1.0-4.0); LYMPHOCYTES % (AUTO) 34 % (12-44); MEAN CORPUSCULAR HEMOGLOBIN 29 pg (25-34); MEAN CORPUSCULAR HGB CONC 33 g/dL (32-36); MEAN CORPUSCULAR VOLUME 87 fL (80-99); MEAN PLATELET VOLUME 11.5 fL (9.0-12.2); MONOCYTES # (AUTO) 0.5 10^3/uL (0.0-1.0); MONOCYTES % (AUTO) 7 % (0-12); NEUTROPHILS % (AUTO) 58 % (42-75); PLATELET COUNT 188 10^3/uL (130-400); WHITE BLOOD COUNT 6.9 10^3/uL (4.3-11.0)
[2021-05-06 14:21] LABS: ALBUMIN 4.2 GM/DL (3.2-4.5)
[2021-05-06 14:24] LABS: TOTAL PROTEIN 7.2 GM/DL (6.4-8.2)
[2021-05-06 14:26] LABS: BILIRUBIN,TOTAL 0.5 MG/DL (0.1-1.0)
[2021-05-06 14:27] LABS: CREATININE SERUM 0.93 MG/DL (0.60-1.30)
[2021-05-06 15:03] VITALS: BP 124/84
== END 2021-05-06 15:03 | disposition home or self-care (01) ==
LOC: EDUNIT# 13:37 → ER 13:39
DX: R00.2 Palpitations (principal); I10 Essential (primary) hypertension; F41.9 Anxiety disorder, unspecified
CPT/HCPCS: 36415; 80053; 85025; 85379; 93005

== ENCOUNTER 2021-06-04 08:00 | Day surgery (SDC) | payer BC ==
[~2021-06-04] VITALS: Ht 172.7 cm; Wt 70.5 kg
[2021-06-04] VITALS (11 sets, daily range): BP systolic 93–141; BP diastolic 62–102
[2021-06-04] MEDS ORDERED: NS IV 1000 ML 1,000 ML ONE (08:06)
[2021-06-04] MEDS ORDERED: LIDOCAINE 1% INJ 20 ML 20 ML VIAL ONE (08:06)
[2021-06-04] MEDS ORDERED: HEParin (CATH LAB) 2,000 ML IV ONE (08:07)
[2021-06-04] MEDS ORDERED: NS IV 1000 ML 1,000 ML IV SCH ×2 (08:15→10:00)
[2021-06-04 08:34] LABS: HEMATOCRIT 42 % (35-52); MEAN CORPUSCULAR HEMOGLOBIN 29 pg (25-34); MEAN CORPUSCULAR HGB CONC 33 g/dL (32-36); MEAN CORPUSCULAR VOLUME 88 fL (80-99); MEAN PLATELET VOLUME 11.8 fL (9.0-12.2); PLATELET COUNT 171 10^3/uL (130-400); WHITE BLOOD COUNT 7.4 10^3/uL (4.3-11.0)
[2021-06-04 08:50] LABS: PROTHROMBIN TIME PATIENT 13.9 SEC (12.2-14.7)
[2021-06-04 08:52] LABS: ALBUMIN 3.7 GM/DL (3.2-4.5); BILIRUBIN,TOTAL 0.5 MG/DL (0.1-1.0); CREATININE SERUM 0.84 MG/DL (0.60-1.30); POTASSIUM 3.7 MMOL/L (3.6-5.0); TOTAL PROTEIN 6.3 GM/DL (6.4-8.2)
[2021-06-04] MEDS ORDERED: ASPI-999 PO (09:00)
[2021-06-04] MEDS ORDERED: DIAZ10TA PO (09:00)
[2021-06-04] MEDS ORDERED: METO-351 PO (09:00)
[2021-06-04] MEDS ORDERED: MIDAZOLAM 5 MG/5 ML (VERSED) VIAL ONE (09:14)
[2021-06-04] MEDS ORDERED: fentaNYL INJ 100 MCG/2 ML AMP ONE (09:14)
[2021-06-04] MEDS ORDERED: HEParin 1000 UNIT/ML (10ML VIAL) FOR BOLUS ONE (09:42)
--- NOTE | 2021-06-04 09:55 | Cardiac Procedure Note-CS/ASA ---
Pre-Procedure Note Pre-Op Procedure Note H&P Reviewed The H&P was reviewed, patient examined and no changes noted. Date H&P Reviewed: Jun 04, 2021 Time H&P Reviewed: 09:20 Conscious Sedation Pre-Proced Time 09:20 ASA Score 3 For ASA 3 and 4: Consider anesthesia and medical clearance. Also, for patients with a history of failed moderate sedation consider anesthesia. Airway Lungs Heart ASA score ASA 1: a normal healthy patient ASA 2: a patient with a mild systemic disease (mid diabetes, controlled hypertension, obesity ASA 3: a patient with a severe systemic disease that limits activity (angina, COPD, prior Myocardial infarction) ASA 4: a patient with an incapacitating disease that is a constant threat to life (CHF, renal failure) ASA 5: a moribund patient not expected to survive 24 hrs. (ruptured aneurysm) ASA 6: a declared brain- patient whose organs are being harvested. For emergent operations, add the letter E after the classification Mallampati Classification Grade 2 Sedation Plan Analgesia, Amnesia, Plan communicated to team members, Discussed options with patient/fam, Discussed risks with patient/fam The patient is an appropriate candidate to undergo the planned procedure, sedation, and anesthesia. The patient immediately re-assessed prior to indication. IVÁN BAEZ MD FACP FAC [facility]S Jun 04, 2021 09:55
[2021-06-04] MEDS ORDERED: PATIENT MAY USE OWN MEDS, ALL PO SCH (10:00)
--- NOTE | 2021-06-04 10:02 | Discharge Inst-Cardiology ---
Discharge Inst-Cardiac Discharge Medications Continued Medications: Aspirin (Aspirin) 81 Mg Tab.chew 81 MG PO DAILY, TAB Diazepam (Valium) 10 Mg Tablet 10 MG PO DAILY PRN for ANXIETY, TAB Metoprolol Succinate (Toprol Xl) 25 Mg Tab.er.24h 25 MG PO HS, TAB Patient Instructions Patient Instructions: No tobacco use or vaping IVÁN BAEZ MD FACP [facility]S Jun 04, 2021 10:02
--- NOTE | 2021-06-04 10:03 | Discharge Inst-Post CATH ---
Discharge Inst-CATH/EP Post Cardiac Cath/EP D/C Inst Follow Up/Plan F/u with Dr Ramos next week ACTIVITY * Go Home directly and rest. * Limit activity of the leg (or wrist if it was used) for 7 days including aerobics, swimming, jogging, bicycling, etc. * Restrict stair-climbing for 7 days if possible, if not, climb up with your no n-cath leg, then bring together on the same step. * Avoid lifting, pushing, pulling or excessive movement of the affected ext remity for 7 days. * Customary sexual activity may be resumed after 2 days-use caution not to use a position that strains or causes pain to the affected extremity. * No driving for 24 hours. * NO SMOKING. * Avoid straining for bowel movements for 7 days. * Gentle walking on level ground is allowed. * Returning to work will depend on the type of procedure and the results. Your doctor will discuss this with you. CALL YOUR DOCTOR FOR ANY OF THE FOLLOWING: *If bleeding from the puncture site occurs- Apply gentle pressure to site with clean cloth and call your doctor or EMS. * If a knot or lump forms under the skin, increases in size, or causes pain. * If bruising appears to be worsening or moving further down your leg instead of disappearing. * Temperature above 101 F. CARE OF YOUR GROIN INCISION; * Bruising or purple discoloration of the skin near the puncture site is common. * You may shower only, no bathtub bathing for 5 days. Be careful to avoid slipping as your leg may feel stiff. * If a closure device was used on your femoral artery, please see the attached guide regarding care of the device and your leg. * Leave dressing on FOR 24 hours. CARE OF YOUR WRIST INCISION; * Bruising or purple discoloration of the skin near the puncture site is common. * You may shower. * DO NOT submerge wrist. * Leave dressing on FOR 24 hours. IVÁN RAMOS MD [facility] CCDS Jun 04, 2021 10:03
--- NOTE | 2021-06-04 11:20 | CARDIAC CATHETERIZATION ---
DATE OF SERVICE: 06/04/2021 CARDIAC CATHETERIZATION REPORT INDICATIONS: The patient is a 40-year-old lady with known coronary artery disease with risk factors who has been experiencing palpitations and a Holter monitor study had indicated a 9-beat run of accelerated idioventricular rhythm versus borderline nonsustained ventricular tachycardia. Cardiac catheterization was recommended. Informed consent was obtained. DESCRIPTION OF PROCEDURE: She was brought to the cardiac catheterization laboratory in a fasting state. Right groin was prepared and draped in the usual sterile fashion. Lidocaine 1% was used for local anesthesia. Modified Seldinger technique was used to advance a 5-Ugandan sheath in right femoral artery, 5-Ugandan JL4 catheter was used for left coronary angiography, 5-Ugandan JR4 catheter used for right coronary angiography, 5-Ugandan pigtail catheter was used for left heart catheterization and left ventricular angiography. Angiography of the right femoral artery was carried out through the sheath. Mynx was used to achieve hemostasis following sheath removal. She tolerated the procedure well. She received 2000 units of intravenous heparin during the procedure. HEMODYNAMICS: Left ventricular end-diastolic pressure following coronary angiography was 11 mmHg. There is no significant pressure gradient on pullback across the aortic valve. LEFT VENTRICULAR ANGIOGRAPHY: Left ventricular angiography was carried out in the right anterior oblique projection. Global left ventricular systolic function is normal. No regional wall motion abnormality is seen. Left ventricular ejection fraction is approximately 60%. CORONARY ANGIOGRAPHY: Left main coronary artery, left anterior descending artery, left circumflex artery, right coronary artery do not exhibit any significant coronary artery disease. Right coronary artery is dominant. CONCLUSIONS: 1. No angiographically significant coronary artery disease. 2. Normal left ventricular end-diastolic pressure. 3. Normal global left ventricular systolic function with ejection fraction approximately 60%. Job ID: [id number] DocumentID: [id number] Dictated Date: 06/04/2021 10:00:00 [employer] Worker Date: 06/04/2021 11:20:30 Dictated By: IVÁN BAEZ MD, MA, FACP, FACC,
== END 2021-06-04 14:00 | disposition home or self-care (01) ==
LOC: CATH 08:00 → SDC 10:24 → CATH 14:00
PROVIDERS: ATTEND Internal Medicine Cardiovascular Disease
DX: R00.2 Palpitations (principal); R06.02 Shortness of breath; I49.9 Cardiac arrhythmia, unspecified; F32.9 Major depressive disorder, single episode, unspecified; F41.9 Anxiety disorder, unspecified; Z79.899 Other long term (current) drug therapy; Z87.891 Personal history of nicotine dependence
CPT/HCPCS: 80053; 80061; 84703; 85027; 85610; 85730; 87081; 93458; C1760; C1894; 36415; 36430

== ENCOUNTER 2021-12-31 07:48 | Emergency (ER) | payer BC ==
[~2021-12-31] VITALS: Ht 172 cm; Wt 72.0 kg
[~2021-12-31 07:48] MED LIST changes: +ASPI-999 PO; +CYCL10TA25 PO; -CYCL10TA9 PO; +METO-351 PO
--- NOTE | 2021-12-31 08:20 | ED General ---
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 STATES THE LEFT ONE HAS GOTTEN BETTER AND IT STARTED IN THE MIDDLE OF THE NIGHT. Source of Information: Patient Exam Limitations: No Limitations (EBENEZER LEMUS STUDENT) History of Present Illness Date Seen by Provider: Dec 31, 2021 Time Seen by Provider: 07:58 Initial Comments Patient is a 41 year old female with a history of factor 5 leiden who presents to the ED with complaints of bilateral arm burning, aching, and a tightening sensation. Reports she was asleep and was awoken at 0200 this am with these complaints. Didn't do anything new or different recently as far as sleep position or exercise. States the pain is constant and unrelenting. Reports the pain to be a 3/10 currently. Took two baby ASA this am without relief of symptoms. 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 Reports the symptoms were the same in the left arm and then resolved and then came back on the drive to the ED. Reports her right hand feels cooler compared to her left hand. Nothing seems to make the pain better. Elevating the right arm and abducting the arm worsen the pain. Reports after getting out of bed this am she became lightheaded and dizzy for a few minutes while walking to the bathroom. She reports a history of dvt in her right leg approximately 15 years ago. Denies chest pain, fevers, headache, dysuria, and diarrhea. Reports some mild SOB. Timing/Duration: 4-6 Hours Severity: Mild Modifying Factors: improves with Movement (elevating the arm above her head) Associated Systoms: No Chest Pain, No Cough, No Diaphoresis, No Fever/Chills, No Rash (EBENEZER LEMUS MED STUDENT) Initial Comments Patient seen and evaluated by me. Patient endorses the above stated complaint to the medical student. She also tells me that earlier this morning her right hand/arm felt uncoordinated. She felt like she could not text very well with the right hand. She also tells me that she was having difficulty picking things up with the right hand. She states that she likens the sensation to after having had a tourniquet around her upper arm when the blood flow comes back and it is "throbbing". She states the weakness in the arm discomfort started at the same time at about 3 AM this morning. She did take 2 aspirin. She feels like her right hand is cooler than her left hand. These were baby aspirin she denies any speech difficulties, vision changes, headache. No prior neck injuries are reported. She states the right arm feels worse than the left arm. She is r ight-hand dominant. She also had some shortness of breath at onset of symptoms. No lower extremity symptoms. She does have chronic lower back issues as a result of doing gymnastics as a younger person. (ESTRELLA JOLLEY MD) Allergies and Home Medications Allergies Coded Allergies: No Known Drug Allergies (Unverified , 06/30/19) Patient Home Medication List Home Medication List Reviewed: Yes (JEROME DE LOS SANTOS) Aspirin (Aspirin) 81 Mg Tab.chew, 81 MG PO DAILY, (Reported) Entered as Reported by: SAGE PARK on 06/04/21 0900 Diazepam (Valium) 10 Mg Tablet, 10 MG PO DAILY PRN for ANXIETY, (Reported) Entered as Reported by: SAGE PARK on 06/04/21 0900 Metoprolol Succinate (Toprol Xl) 25 Mg Tab.er.24h, 25 MG PO HS, (Reported) Entered as Reported by: SAGE PARK on 06/04/21 0900 Prednisone (Prednisone) 10 Mg Tab.ds.pk, 10 MG PO DAILY Prescribed by: ESTRELLA JOLLEY on 12/31/21 1131 Review of Systems Review of Systems Constitutional: no symptoms reported; No chills, No diaphoresis, No fever EENTM: no symptoms reported; No blurred vision, No double vision Respiratory: no symptoms reported; No cough, No dyspnea on exertion Cardiovascular: no symptoms reported; No chest pain, No edema, No syncope Gastrointestinal: No abdominal pain, No constipation, No diarrhea Genitourinary: no symptoms reported; No decreased output, No dysuria : No LMP: Dec 03, 2021 Musculoskeletal: No back pain, No joint pain, No joint swelling; other (Burning/dull achy constant pain bilateral arms) Skin: no symptoms reported; No change in color, No change in hair/nails Psychiatric/Neurological: No Symptoms Reported; Denies Anxiety, Denies Depressed, Denies Headache Hematologic/Lymphatic: No Symptoms Reported, Blood Clots (history of DVT right lower extremity); Denies Easy Bleeding, Denies Easy Bruising Immunological/Allergic: no symptoms reported (EBENEZER LEMUS STUDENT) All Other Systems Reviewed Negative Unless Noted: Yes (EBENEZER LEMUS) Past Dstxism-Hvuyjd-Whjfuu Hx Patient Social History Tobacco Use?: No Smoking Status: Former Smoker Smokeless Tobacco Frequency: Never a User Use of E-Cig and/or Vaping dev: Yes E-Cig or Vaping type used: Nicotine Use of E-Cig and/or Vaping Jarrett: Current Everyday User Substance use?: Yes Substance type: Marijuana Alcohol Use?: No (EBENEZER LEMUS) Immunizations Up To Date Tetanus Booster (TDap): Less than 5yrs PED Vaccines UTD: Yes First/Initial COVID19 Vaccinat: 07/25 COVID19 Vaccine Casting Cleaner: J&J (EBENEZER LEMUS ebindle BOLIVAR) Seasonal Allergies Seasonal Allergies: No (EBENEZER LEMUS) Past Medical History Surgeries: Yes ([place] Teeth, EGD, LAP BAND ) Section, Gallbladder Respiratory: No Cardiac: Yes Deep Vein Thrombosis, Palpitations Neurological: Yes Meningitis Last Menstrual Period: Nov 26, 2021 Reproductive Disorders: No Female Reproductive Disorders: Denies Sexually Transmitted Disease: No HIV/AIDS: No Genitourinary: No Gastrointestinal: No Musculoskeletal: No Endocrine: No HEENT: Yes Cataract Cancer: Yes Skin Did You Recieve Any Treatments: Yes What Type of Treatment Did You: Surgical Intervention Psychosocial: Yes ADD/ADHD, Anxiety, Depression Integumentary: No 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 ) (EBENEZER LEMUS ebindle STUDENT) Family Medical History Cardiovascular disease 19 FATHER Cataracts 19 MOTHER Congenital heart disease 19 FATHER Diabetes mellitus 19 FATHER Fibrocystic disease of breast 19 MOTHER Headache disorder G8 BROTHER Hypercholesterolemia 19 MOTHER Hypertension G8 BROTHER Psychosocial problem 19 MOTHER Respiratory disorder 19 MOTHER Thyroid disease 19 MOTHER Visual disorder 19 MOTHER No Family History of: AIDS Abdominal aortic aneurysm Dmitri's disease Alcoholism Alzheimer's disease Aphasia Arthritis Asthma Cancer of mouth Colon cancer Completed stroke Congenital disease Coronary thrombosis Cystic fibrosis Deafness or hearing loss Dementia Drug abuse Dysphasia Gastroenteritis Glaucoma Infertility Kidney disease Myocardial infarction Neoplasm Not obtainable due to adoption Osteoporosis Parkinson's disease Prostate cancer Seizure disorder Severe allergy Tuberculosis No Pertinent Family Hx (EBENEZER LEMUS MED STUDENT) Physical Exam Vital Signs Vital Signs - First Documented 12/31/21 07:55 Temp 36.3 Pulse 83 Resp 16 B/P (MAP) 134/91 (105) Pulse Ox 100 O2 Delivery Room Air (ESTRELLA JOLLEY MD) Vital Signs Capillary Refill : Less Than 3 Seconds (EBENEZER LEMUS STUDENT) Height, Weight, BMI Height: 5'8.00" Weight: 150lbs. 0.2oz. 68.218280bs; 24.00 BMI Method:Stated General Appearance: No Apparent Distress, WD/WN Eyes: Bilateral Eye Normal Inspection, Bilateral Eye PERRL, Bilateral Eye EOMI HEENT: PERRL/EOMI, Moist Mucous Membranes Neck: Full Range of Motion, Normal Inspection, Non Tender Respiratory: Chest Non Tender, Lungs Clear, Normal Breath Sounds, No Accessory Muscle Use Cardiovascular: Regular Rate, Rhythm, No Edema, Normal Peripheral Pulses Gastrointestinal: Normal Bowel Sounds, Non Tender, Soft Rectal: Deferred Back: Normal Inspection, No Vertebral Tenderness Extremity: Normal Capillary Refill, Non Tender, No Calf Tenderness, No Pedal Edema, Other (1+ right radial pulse. Right hand slightly cooler than left hand. Director Public Policy strength right hand 4/5. No obvious rash or lesion right arm/hand. ) Neurologic/Psychiatric: Alert, Oriented x3, No Motor/Sensory Deficits Skin: Normal Color, Warm/Dry Lymphatic: No Adenopathy (Head ane Neck) (EBENEZER LEMUS MED STUDENT) General Appearance: No Apparent Distress, WD/WN, Other (VSS Pox 100% room air) Neck: Full Range of Motion, Normal Inspection, Non Tender, Supple Respiratory: Lungs Clear, Normal Breath Sounds, No Accessory Muscle Use Cardiovascular: Regular Rate, Rhythm, No Edema, Normal Peripheral Pulses (2+ radial bilateral; brisk cap refill) Back: Normal Inspection, No Vertebral Tenderness Extremity: Normal Capillary Refill, Normal Inspection, Normal Range of Motion, Non Tender, Other (1+ right radial pulse. Right hand slightly cooler than left hand. Director Public Policy strength right hand 4/5. No obvious rash or lesion right arm/hand. 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 Norm as Tested, Motor Weakness (as above under extremity exam) Skin: Normal Color, Warm/Dry, Other ((right hand slightly cooler than left)) (ESTRELLA JOLLEY MD) Progress/Results/Core Measures Suspected Sepsis SIRS Temperature: Pulse: 83 Respiratory Rate: 16 Blood Pressure 134 /91 Mean: 105 (EBENEZER LEMUS MED STUDENT) SIRS Laboratory Tests 12/31/21 08:45: White Blood Count 7.6 Laboratory Tests 12/31/21 08:45: Creatinine 0.83, Platelet Count 186 (ESTRELLA JOLLEY MD) Results/Orders Lab Results Laboratory Tests Test 12/31/21 08:45 Range/Units White Blood Count 7.6 4.3-11.0 10^3/uL Red Blood Count 5.16 H 3.80-5.11 10^6/uL Hemoglobin 15.1 11.5-16.0 g/dL Hematocrit 45 35-52 % Mean Corpuscular Volume 88 80-99 fL Mean Corpuscular Hemoglobin 29 25-34 pg Mean Corpuscular Hemoglobin Concent 33 32-36 g/dL Red Cell Distribution Width 13.3 10.0-14.5 % Platelet Count 186 130-400 10^3/uL Mean Platelet Volume 11.9 9.0-12.2 fL Immature Granulocyte % (Auto) 0 % Neutrophils (%) (Auto) 64 42-75 % Lymphocytes (%) (Auto) 27 12-44 % Monocytes (%) (Auto) 8 0-12 % Eosinophils (%) (Auto) 1 0-10 % Basophils (%) (Auto) 1 0-10 % Neutrophils # (Auto) 4.9 1.8-7.8 10^3/uL Lymphocytes # (Auto) 2.0 1.0-4.0 10^3/uL Monocytes # (Auto) 0.6 0.0-1.0 10^3/uL Eosinophils # (Auto) 0.1 0.0-0.3 10^3/uL Basophils # (Auto) 0.1 0.0-0.1 10^3/uL Immature Granulocyte # (Auto) 0.0 0.0-0.1 10^3/uL Sodium Level 139 135-145 MMOL/L Potassium Level 4.0 3.6-5.0 MMOL/L Chloride Level 106 98-107 MMOL/L Carbon Dioxide Level 25 21-32 MMOL/L Anion Gap 8 5-14 MMOL/L Blood Urea Nitrogen 12 7-18 MG/DL Creatinine 0.83 0.60-1.30 MG/DL Estimat Glomerular Filtration Rate 90 BUN/Creatinine Ratio 14 Glucose Level 62 L 70-105 MG/DL Calcium Level 8.9 8.5-10.1 MG/DL Troponin I < 0.028 <0.028 NG/ML (ESTRELLA JOLLEY MD) My Orders Orders - ESTRELLA JOLLEY MD Ekg Tracing (12/31/21 08:19) Cbc With Automated Diff (12/31/21 08:19) Basic Metabolic Panel (12/31/21 08:19) Troponin I Veda (12/31/21 08:19) Chest Pa/Lat (2 View) (12/31/21 08:19) Ed Iv/Invasive Line Start (12/31/21 08:19) Aspirin Chewable Tablet (Baby Aspirin Ch (12/31/21 09:00) Ct Head Wo (12/31/21 09:09) (ESTRELLA JOLLEY MD) Vital Signs/I&O 12/31/21 07:55 Temp 36.3 Pulse 83 Resp 16 B/P (MAP) 134/91 (105) Pulse Ox 100 O2 Delivery Room Air (ESTRELLA JOLLEY MD) Vital Signs/I&O Capillary Refill : Less Than 3 Seconds (EBENEZER LEMUS MED STUDENT) Blood Pressure Mean: 105 Progress Note #1: Time: 09:09 Progress Note decision made to CT head noncontrast secondary to history of factor V leiden deficiency and acute onset right upper extremity weakness and what sounds like some paresthesia. Last known well time before bed last night - as patient woke up with symptoms at 0300. So would be outside window for TPA. Suspect more neuropathy, but in light of acute onset of symptoms and history, will get CT head. Progress Note #2: Time: 11:25 Progress Note Work-up reviewed and are reassuring. Head CT nornal. Cardiac enzymes >4hr from onset of sx neg. Patient states that the discomfort is somewhat alleviated in the upper arms. She states however even the skin of her forearm on the dorsal aspect is hypersensitive. We discussed differential including cervical disc bulge and nerve root compression contributing to radiculopathy. I recommended she follow-up with her primary care physician for further imaging such as an MRI of her cervical spine. We will place her on a short prednisone taper to see if we can alleviate some of the inflammation potentially causing her symptoms. Return precautions were discussed. I recommended an acid technical marketing consultant while she is taking steroids. She verbalized understanding. All questions are sought and answered. Patient is stable for discharge. (ESTRELLA JOLLEY MD) Progress Note : Time: 14:39 Progress Note The patient called back to the ER stating that she is having significantly worsening pain, paresthesias and weakness and dropping things with her left arm worse than right arm now. She did take the prednisone as instructed. We told her it is too early to expect improvement from the prednisone but given her weakness it would be reasonable to consider doing some advanced imaging on her neck and told the patient this could be done on an outpatient basis through her primary care office within 1 to 2 weeks or she can return to the ER and if appropriate we could do it here. Patient states she will probably come back this way. We reviewed her previous labs and note and added a D-dimer. Given her history of factor V Leiden we will give some consideration for a upper extremity deep vein thrombosis however we have not examined the patient. Questions were answered to the patient's satisfaction at this time. (JEROME DE LOS SANTOS) ECG Initial ECG Impression Date: Dec 31, 2021 Initial ECG Impression Time: 08:40 Initial ECG Rate: 69 Initial ECG Rhythm: Normal Sinus Initial ECG Intervals: Normal Comment Poor R wave progression over the precordium, no ectopy is noted. No ST segment deviation. (ESTRELLA JOLLEY MD) Diagnostic Imaging Diagonstic Imaging: Xray Plain Films/CT/US/NM/MRI: chest Comments [facility]. [place], [place] NAME: EMILIANA LANDA MED REC#: [id number] PT STATUS: REG ER : 1980 PHYSICIAN: ESTRELLA JOLLEY MD ADMIT DATE: 12/31/21/ER Draft Date of Exam:12/31/21 CHEST PA/LAT (2 VIEW) CLINICAL INDICATION: Patient complains of loosening scrum coach strength in both her hands and having pain and burning in her arms. EXAM: Chest x-ray PA and lateral views. COMPARISON: Chest x-ray dated 05/03/2021. FINDINGS: Lungs/pleura: Lungs are clear. There is no pneumothorax. There is no pleural effusion. Mediastinum: Unremarkable. Pulmonary vasculature: Unremarkable. Heart: Unremarkable. Bones/extrathoracic soft tissue: There are small degenerative spurs involving the thoracic spine. Gastric lap band again noted. IMPRESSION: There is no radiographic evidence of acute cardiopulmonary process. Dictated on workstation # [id number] Dict: 12/31/21 0907 Trans: 12/31/21909 CV [id number] Interpreted by: JULIA BELLA MD Electronically signed by: Comments [facility] [place] [place] NAME: EMILIANA LANDA [facility] REC#: [id number] PT STATUS: REG ER : 1980 PHYSICIAN: ESTRELLA JOLLEY MD ADMIT DATE: 12/31/21/ER Draft Date of Exam:12/31/21 CT HEAD WO EXAMINATION: CT head without contrast. TECHNIQUE: Multiple contiguous axial images were obtained through the brain without the use of intravenous contrast. All CT scans use one or more of the following dose optimizing techniques: Automated exposure control, MA and/or KvP adjustment based on patient size and exam type or iterative reconstruction. HISTORY: Acute right arm weakness. COMPARISON: None available. FINDINGS: The wilson-white matter differentiation is normal. No mass effect or midline shift. The ventricles are normal in size and configuration. Basilar cisterns are patent. There are no intra- or extra-axial fluid collections. There is no intracranial hemorrhage. The orbits are normal. Paranasal sinuses are normal. Mastoid air cells are clear. No soft tissue abnormality is seen. No osseous lesions or fractures are seen. IMPRESSION: 1. No acute intracranial abnormality. Dictated on workstation # [id number] Dict: 12/31/21 1052 Trans: 12/31/21 1055 [id number] Interpreted by: WALTER ANTHONY MD Electronically signed by: (ESTRELLA JOLLEY MD) Departure Impression Primary Impression: Radiculopathy affecting upper extremity Disposition: 01 HOME, SELF-CARE Condition: Stable Departure-Patient Inst. Decision time for Depature: 11:27 (ESTRELLA JOLLEY MD) Referrals: WALTER BUTLER MD (PCP/Family) Primary Care Physician Patient Instructions: Radiculopathy (DC) Add. Discharge Instructions: Drink plenty of fluids to stay well hydrated. Continue your baby aspirin daily. Prednisone taper as prescribed. Take an over the counter Acid technical marketing consultant such as prilosec or pepcid while on the steroids. Please call and followup with your primary care provider for further evaluation of the right arm weakness. Return to the Emergency Department for any worsening pain, weakness or other emergent, concerning symptoms. Scripts Prednisone (Prednisone) 10 Mg Tab.ds.pk 10 MG PO DAILY, #21 EA Take 6 tabs(60mg)daily,decrease by 1 tab(10MG)daily. Prov: ESTRELLA JOLLEY MD 12/31/21 Verification and Attestation of Medical Student E/M Service A medical student performed and documented this service in my presence. I reviewed and verified all information documented by the medical student and made modifications to such information, when appropriate. I personally performed the physical exam and medical decision making. Estrella Jolley, Dec 31, 2021,11:30 (ESTRELLA JOLLEY MD) Copy Copies To 1: WALTER BUTLER MD, [employer] MED STUDENT Dec 31, 2021 08:20 ESTRELLA JOLLEY MD Dec 31, 2021 08:50 JEROME DE LOS SANTOS Dec 31, 2021 14:40
[2021-12-31 08:55] LABS: BASOPHILS # (AUTO) 0.1 10^3/uL (0.0-0.1); BASOPHILS % (AUTO) 1 % (0-10); EOSINOPHILS # (AUTO) 0.1 10^3/uL (0.0-0.3); EOSINOPHILS % (AUTO) 1 % (0-10); HEMATOCRIT 45 % (35-52); HEMOGLOBIN 15.1 g/dL (11.5-16.0); LYMPHOCYTES % (AUTO) 27 % (12-44); MEAN CORPUSCULAR HEMOGLOBIN 29 pg (25-34); MEAN CORPUSCULAR HGB CONC 33 g/dL (32-36); MEAN CORPUSCULAR VOLUME 88 fL (80-99); MEAN PLATELET VOLUME 11.9 fL (9.0-12.2); MONOCYTES # (AUTO) 0.6 10^3/uL (0.0-1.0); MONOCYTES % (AUTO) 8 % (0-12); NEUTROPHILS # (AUTO) 4.9 10^3/uL (1.8-7.8); NEUTROPHILS % (AUTO) 64 % (42-75); PLATELET COUNT 186 10^3/uL (130-400); WHITE BLOOD COUNT 7.6 10^3/uL (4.3-11.0)
[2021-12-31] MEDS ORDERED: ASPIRIN 81 MG CHEW (CHILDREN'S ASA) PO SCH (09:00)
[2021-12-31 09:06] LABS: BUN/CREATININE RATIO 14; CALCIUM 8.9 MG/DL (8.5-10.1); CARBON DIOXIDE 25 MMOL/L (21-32); CHLORIDE 106 MMOL/L (98-107); CREATININE SERUM 0.83 MG/DL (0.60-1.30); GFR ESTIMATED 90; GLUCOSE 62 MG/DL (70-105); SODIUM 139 MMOL/L (135-145)
--- NOTE | 2021-12-31 09:10 | Diagnostic Imaging Report ---
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 EXAM: Chest x-ray PA and lateral views. COMPARISON: Chest x-ray dated 05/03/2021. FINDINGS: Lungs/pleura: Lungs are clear. There is no pneumothorax. There is no pleural effusion. Mediastinum: Unremarkable. Pulmonary vasculature: Unremarkable. Heart: Unremarkable. Bones/extrathoracic soft tissue: There are small degenerative spurs involving the thoracic spine. Gastric lap band again noted. IMPRESSION: There is no radiographic evidence of acute cardiopulmonary process. Dictated by: Dictated on workstation # [id number]
--- NOTE | 2021-12-31 10:56 | Diagnostic Imaging Report ---
EXAMINATION: CT head without contrast. TECHNIQUE: Multiple contiguous axial images were obtained through the brain without the use of intravenous contrast. All CT scans use one or more of the following dose optimizing techniques: Automated exposure control, MA and/or KvP adjustment based on patient size and exam type or iterative reconstruction. HISTORY: Acute right arm weakness. COMPARISON: None available. FINDINGS: The wilson-white matter differentiation is normal. No mass effect or midline shift. The ventricles are normal in size and configuration. Basilar cisterns are patent. There are no intra- or extra-axial fluid collections. There is no intracranial hemorrhage. The orbits are normal. Paranasal sinuses are normal. Mastoid air cells are clear. No soft tissue abnormality is seen. No osseous lesions or fractures are seen. IMPRESSION: 1. No acute intracranial abnormality. Dictated by: Dictated on workstation # [id number]
[2021-12-31] MEDS ORDERED: PRED10TA22 PO (11:31)
[2021-12-31 11:43] VITALS: BP 121/81
== END 2021-12-31 11:43 | disposition home or self-care (01) ==
LOC: EDUNIT# 07:48 → ER 07:50
DX: M54.10 Radiculopathy, site unspecified (principal); F17.290 Nicotine dependence, other tobacco product, uncomplicated
CPT/HCPCS: 36415; 70450; 71046; 80048; 84484; 84703; 85025; 85379; 93005

== ENCOUNTER 2021-12-31 15:03 | Emergency (ER) | payer BC ==
[~2021-12-31] VITALS: Ht 172.7 cm; Wt 72.5 kg
[~2021-12-31 15:03] MED LIST changes: +PRED10TA22 PO
--- NOTE | 2021-12-31 15:28 | ED Upper Extremity ---
General Chief Complaint: Upper Extremity Stated Complaint: BILAT ARM PAIN Source: patient, spouse Exam Limitations: no limitations History of Present Illness Date Seen by Provider: Dec 31, 2021 Time Seen by Provider: 15:15 Initial Comments Patient to ER by private conveyance with her significant other chief complaint she was just here earlier in the day for some neurologic findings and suspected cervical radiculopathy. She was told to start steroids and return to the ER if her symptoms worsen. She states that she started having problems with dropping things out of her hands feeling weak in her right arm and now having worsening symptoms in her left arm with paresthesias and increased pain down her radial portion of her left arm. She has had no recent trauma lifting or repetitive injuries. She does not backpack or carrying heavy loads on her neck or shoulders. She says she did dissipate in gymnastics when she was younger and had some neck injuries. Allergies and Home Medications Allergies Coded Allergies: No Known Drug Allergies (Unverified , 06/30/19) Patient Home Medication List Home Medication List Reviewed: Yes Aspirin (Aspirin) 81 Mg Tab.chew, 81 MG PO DAILY, (Reported) Entered as Reported by: SAGE PARK on 06/04/21 0900 Diazepam (Valium) 10 Mg Tablet, 10 MG PO DAILY PRN for ANXIETY, (Reported) Entered as Reported by: SAGE PARK on 06/04/21 0900 Metoprolol Succinate (Toprol Xl) 25 Mg Tab.er.24h, 25 MG PO HS, (Reported) Entered as Reported by: SAGE PARK on 06/04/21 0900 Prednisone (Prednisone) 10 Mg Tab.ds.pk, 10 MG PO DAILY Prescribed by: ESTRELLA JOLLEY on 12/31/21 1131 Review of Systems Constitutional: No chills, No diaphoresis EENTM: No ear discharge, No ear pain Respiratory: No cough, No short of breath Cardiovascular: No chest pain, No edema Gastrointestinal: No abdominal pain, No nausea, No vomiting Genitourinary: No discharge, No dysuria Musculoskeletal: see HPI, back pain; No joint pain Skin: see HPI Psychiatric/Neurological: See HPI All Other Systems Reviewed Negative Unless Noted: Yes Past Ufasizk-Zvuuna-Bssjcr Hx Patient Social History Tobacco Use?: Yes Tobacco type used: Cigarettes Use of E-Cig and/or Vaping dev: Yes E-Cig or Vaping type used: Nicotine Immunizations Up To Date Tetanus Booster (TDap): Less than 5yrs PED Vaccines UTD: Yes First/Initial COVID19 Vaccinat: 07/25 Seasonal Allergies Seasonal Allergies: No Past Medical History Surgeries: Yes (Ryder Teeth, EGD, LAP BAND ) Section, Gallbladder Respiratory: No Cardiac: Yes Deep Vein Thrombosis, Palpitations Neurological: Yes Meningitis Reproductive Disorders: No Female Reproductive Disorders: Denies Sexually Transmitted Disease: No HIV/AIDS: No Genitourinary: No Gastrointestinal: No Musculoskeletal: No Endocrine: No HEENT: Yes Cataract Cancer: Yes Skin Did You Recieve Any Treatments: Yes What Type of Treatment Did You: Surgical Intervention Psychosocial: Yes ADD/ADHD, Anxiety, Depression Integumentary: No 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 ) Family Medical History Cardiovascular disease 19 FATHER Cataracts 19 MOTHER Congenital heart disease 19 FATHER Diabetes mellitus 19 FATHER Fibrocystic disease of breast 19 MOTHER Headache disorder G8 BROTHER Hypercholesterolemia 19 MOTHER Hypertension G8 BROTHER Psychosocial problem 19 MOTHER Respiratory disorder 19 MOTHER Thyroid disease 19 MOTHER Visual disorder 19 MOTHER No Family History of: AIDS Abdominal aortic aneurysm Lamar's disease Alcoholism Alzheimer's disease Aphasia Arthritis Asthma Cancer of mouth Colon cancer Completed stroke Congenital disease Coronary thrombosis Cystic fibrosis Deafness or hearing loss Dementia Drug abuse Dysphasia Gastroenteritis Glaucoma Infertility Kidney disease Myocardial infarction Neoplasm Not obtainable due to adoption Osteoporosis Parkinson's disease Prostate cancer Seizure disorder Severe allergy Tuberculosis No Pertinent Family Hx Physical Exam Vital Signs Vital Signs - First Documented 12/31/21 15:15 Temp 36.7 Pulse 84 Resp 16 B/P (MAP) 127/87 (100) Pulse Ox 100 O2 Delivery Room Air Capillary Refill : Height, Weight, BMI Height: 5'8.00" Weight: 150lbs. 0.2oz. [id number]; 24.00 BMI Method:Stated General Appearance: WD/WN, mild distress HEENT: PERRL/EOMI, pharynx normal Neck: full range of motion, supple, normal inspection Cardiovascular: normal peripheral pulses, regular rate, rhythm Respiratory: lungs clear, normal breath sounds, no respiratory distress, no accessory muscle use Gastrointestinal: normal bowel sounds, non tender, soft Back: normal inspection, no vertebral tenderness Shoulder: normal inspection, no evidence of injury, normal ROM Elbow/Forearm: no evidence of injury, normal ROM, Bilateral Hand: normal inspection, no evidence of injury, normal ROM, Bilateral, swelling Neurologic/Tendon: normal sensation, normal motor functions, normal tendon functions, responds to pain Neurologic/Psychiatric: alert; No normal mood/affect; motor weakness (Bilateral upper extremity motor weakness right is 3 out of 5 strength and left upper extremity is 4 out of 5.); No sensory deficit (Anxious affect); other (Normal cerebellar tests. Paresthesias and pain down the left arm are reproducible by palpation around C3/C4.) Skin: normal color, warm/dry Progress/Results/Core Measures Results/Orders My Orders Orders - JEROME DE LOS SANTOS Mri Cervical Spine W/O Contras (12/31/21 15:20) Mri Thoracic Spine W/O Con (12/31/21 15:20) Vital Signs/I&O 12/31/21 12/31/21 15:15 17:20 Temp 36.7 Pulse 84 74 Resp 16 18 B/P (MAP) 127/87 (100) 131/85 Pulse Ox 100 98 O2 Delivery Room Air Room Air Progress Progress Note #1: Time: 15:31 Progress Note Patient is having some motor strength weakness that seems to be progressing today per patient complaint. Because she has factor V Leiden we could consider she could have blood clots however being bilateral is less likely. Plan to get an MRI as this seems to be more neurologic in nature is reproducible direct palpation on the nerve roots coming out of C3-C4 region on the left side. She is also having some burning point tenderness between her shoulder blades at about T6-T8. Syringomyelia, nerve root compression. We will get an MRI and if that is negative will consider ultrasounding her deep veins of her upper extremities. Progress Note #2: Time: 18:16 Progress Note D-dimer from today was undetectable. Diagnostic Imaging Diagonstic Imaging: MRI Plain Films/CT/US/NM/MRI: c-spine, other (Thoracic spine) Comments [facility]. [place], [place] NAME: KULWINDER LANDARA Head [facility] REC#: [id number] PT STATUS: REG ER : 1980 PHYSICIAN: JEROME DE LOS SANTOS MD ADMIT DATE: 12/31/21/ER Draft Date of Exam:12/31/21 MRI THORACIC SPINE W/O CON CLINICAL INDICATION: Patient having trouble with bilateral arm paresthesia and pain. No known injury. EXAM: MRI of the cervical spine without contrast. Sequences include sagittal T2, sagittal T1, sagittal T2 fat-sat, and axial T2. COMPARISON: None. FINDINGS: There is no acute thoracic spine fracture or dislocation. There are small Schmorl's nodes involving the dlw-kd-jriaz thoracic spine region. There is no significant disk herniation or disk bulge posteriorly. There are small spurs involving the rlt-rs-sqwvi thoracic spine. There is no significant central canal or neural foramen narrowing. Thoracic spinal cord has normal cord caliber with no abnormal signal. There is no significant paraspinal soft tissue abnormality. IMPRESSION: There is mild thoracic spine degenerative disease with no significant central canal or neural foramen narrowing. Thoracic spinal cord is unremarkable. Dictated on workstation # [id number] Dict: 12/31/21 1626 Trans: 12/31/21 1638 [id number] Interpreted by: JULIA BELLA MD Electronically signed by: PO [place], [place] NAME: EMILIANA LANDA [facility] REC#: [id number] PT STATUS: REG ER : 1980 PHYSICIAN: JEROME DE LOS SANTOS MD ADMIT DATE: 12/31/21/ER Draft Date of Exam:12/31/21 MRI CERVICAL SPINE W/O CONTRAS CLINICAL INDICATION: Patient having trouble with bilateral arm paresthesia and pain. No known injury. EXAM: MRI of the cervical spine performed without IV contrast. Sequences include sagittal T2, sagittal T1, sagittal T2 fat-sat, and axial T2. COMPARISON: None. FINDINGS: There is no acute cervical spine fracture or dislocation. There are mildly hypertrophic spurs involving the lower cervical spine. Limited visualization of the posterior fossa is unremarkable. There is an abnormal area of intramedullary high T2 signal involving the anterior aspect of the cord, which is predominantly on the right side, but extends toward midline. This area measures roughly 2 mm in AP dimension x 7 mm in transverse dimension and roughly 8 mm in craniocaudal dimension. This area is seen at the C6-C7 level. The remainder of the cervical spinal cord is unremarkable. Limited visualization of the posterior fossa is unremarkable. C1-C2: Unremarkable. C2-C3: There is mild left facet arthropathy. There is no significant central canal or neural foramen narrowing. C3-C4: There is no significant central canal or neural foramen narrowing. C4-C5: There is a small left subarticular disc spur with mild left neural foramen narrowing. There is no significant central canal narrowing or right neural foramen narrowing. C5-C6: There is minimal diffuse disc bulge. There is no significant central canal or neural foramen narrowing. C6-C7: There is a diffuse disc bulge with mild loss of disc space height. There is mild central canal narrowing. There is mild bilateral neural foramen narrowing. C7-T1: There is mild bilateral facet arthropathy. There is no significant central spinal canal or neural foramen narrowing. IMPRESSION: 1: There is a small area of intramedullary high T2 signal involving the right of midline and midline anterior aspect of the cervical cord seen at the C6-C7 level. There are no expansile changes. This finding is of unknown etiology, and cervical myelopathy may be considered. Cord contusion cannot be excluded. A demyelinating process also cannot be excluded. MRI of the cervical spine postcontrast is suggested to better evaluate this area. 2: There is a diffuse disc bulge at the C6-C7 level with mild central canal narrowing and mild bilateral neural foramen narrowing. Dictated on workstation # [id number] Dict: 12/31/21 1618 Trans: 12/31/21 1641 [id number] Interpreted by: JULIA BELLA MD Electronically signed by: Reviewed: Reviewed by Me Departure Communication (PCP) 1815: Discussed the case with AMY Clayton who is primary care for the patient. She is familiar with her and will close the loop and follow-up on the incidental findings on MRI. Impression Primary Impression: Weakness of both upper extremities Additional Impressions: Paresthesia of upper extremity Cervical radiculopathy at C5 Cervical radiculopathy at C6 Disposition: 01 HOME, SELF-CARE Condition: Stable Departure-Patient Inst. Decision time for Depature: 16:59 Referrals: WALTER BUTLER MD (PCP/Family) Primary Care Physician Patient Instructions: Radiculopathy (DC) Add. Discharge Instructions: You do have some pinched nerves at the level of C5 and C6 in your neck right worse than left which are probably the culprit for your symptoms. We will start with a full course of steroids and topical creams such as icy hot, ice for a couple days and then heat applied to your neck. He can follow-up with physical therapy and get an evaluation by calling [phone]. Return to the ER promptly if you lose control of bowel or bladder, or have weakness and falls. Tylenol and Motrin as necessary for pain. Make a follow-up appointment in the next couple weeks to discuss the incidental finding on your MRI of the neck. An MRI with contrast will be necessary to rule out some kind of demyelinating disease. This can be set up in the next couple weeks by your primary care doctor. All discharge instructions reviewed with patient and/or family. Voiced understanding. Copy Copies To 1: WALTER BUTLER MD, TITUS J Dec 31, 2021 15:28
--- NOTE | 2021-12-31 16:38 | Diagnostic Imaging Report ---
CLINICAL INDICATION: Patient having trouble with bilateral arm paresthesia and pain. No known injury. EXAM: MRI of the cervical spine without contrast. Sequences include sagittal T2, sagittal T1, sagittal T2 fat-sat, and axial T2. COMPARISON: None. FINDINGS: There is no acute thoracic spine fracture or dislocation. There are small Schmorl's nodes involving the ozr-hn-jyobh thoracic spine region. There is no significant disk herniation or disk bulge posteriorly. There are small spurs involving the byi-lo-ohjrt thoracic spine. There is no significant central canal or neural foramen narrowing. Thoracic spinal cord has normal cord caliber with no abnormal signal. There is no significant paraspinal soft tissue abnormality. IMPRESSION: There is mild thoracic spine degenerative disease with no significant central canal or neural foramen narrowing. Thoracic spinal cord is unremarkable. Dictated by: Dictated on workstation # [id number]
--- NOTE | 2021-12-31 16:41 | Diagnostic Imaging Report ---
CLINICAL INDICATION: Patient having trouble with bilateral arm paresthesia and pain. No known injury. EXAM: MRI of the cervical spine performed without IV contrast. Sequences include sagittal T2, sagittal T1, sagittal T2 fat-sat, and axial T2. COMPARISON: None. FINDINGS: There is no acute cervical spine fracture or dislocation. There are mildly hypertrophic spurs involving the lower cervical spine. Limited visualization of the posterior fossa is unremarkable. There is an abnormal area of intramedullary high T2 signal involving the anterior aspect of the cord, which is predominantly on the right side, but extends toward midline. This area measures roughly 2 mm in AP dimension x 7 mm in transverse dimension and roughly 8 mm in craniocaudal dimension. This area is seen at the C6-C7 level. The remainder of the cervical spinal cord is unremarkable. Limited visualization of the posterior fossa is unremarkable. C1-C2: Unremarkable. C2-C3: There is mild left facet arthropathy. There is no significant central canal or neural foramen narrowing. C3-C4: There is no significant central canal or neural foramen narrowing. C4-C5: There is a small left subarticular disc spur with mild left neural foramen narrowing. There is no significant central canal narrowing or right neural foramen narrowing. C5-C6: There is minimal diffuse disc bulge. There is no significant central canal or neural foramen narrowing. C6-C7: There is a diffuse disc bulge with mild loss of disc space height. There is mild central canal narrowing. There is mild bilateral neural foramen narrowing. C7-T1: There is mild bilateral facet arthropathy. There is no significant central spinal canal or neural foramen narrowing. IMPRESSION: 1: There is a small area of intramedullary high T2 signal involving the right of midline and midline anterior aspect of the cervical cord seen at the C6-C7 level. There are no expansile changes. This finding is of unknown etiology, and cervical myelopathy may be considered. Cord contusion cannot be excluded. A demyelinating process also cannot be excluded. MRI of the cervical spine postcontrast is suggested to better evaluate this area. 2: There is a diffuse disc bulge at the C6-C7 level with mild central canal narrowing and mild bilateral neural foramen narrowing. Dictated by: Dictated on workstation # [id number]
[2021-12-31 17:20] VITALS: BP 131/85
== END 2021-12-31 17:20 | disposition home or self-care (01) ==
LOC: EDUNIT# 15:03 → ER 15:04
DX: R20.2 Paresthesia of skin (principal); M54.12 Radiculopathy, cervical region; R53.1 Weakness; Z72.0 Tobacco use
CPT/HCPCS: 72141; 72146; 99281

== ENCOUNTER → 2022-01-08 | Outpatient (CLI) | payer BC ==
[~2022-01-08] MED LIST changes: +GADOTERATE 0.5 MMOL/ML (CLARISCAN) 20 ML VIAL IV ONE
--- NOTE | 2022-01-08 11:38 | Diagnostic Imaging Report ---
PROCEDURE: MR imaging cervical spine with and without contrast. TECHNIQUE: Multiplanar and multisequence MRI of the cervical spine was performed with and without contrast. INDICATION: Cervical spinal cord signal abnormality. FINDINGS: The pre and post contrast cervical spine MRI protocol reveals normal cervical spinal curvature and alignment. There is stable disc bulging at the C6-C7 level without evidence of significant spinal stenosis. Although the T2 sequences (which revealed signal abnormality on the study of 12/31/2021) were not obtained on this examination, there is no evidence of definite cervical spinal cord signal abnormality or mass. There is no abnormal contrast enhancement. IMPRESSION: No enhancing lesion is seen within the cervical spine at the site of signal abnormality on the previous study. This suggest benign etiology such as edema or myelomalacia. Additional followup including T2-weighted sagittal images in 6 months would be useful to document resolution. Dictated by: Dictated on workstation # [id number]
--- NOTE | 2022-01-08 12:40 | Diagnostic Imaging Report ---
PROCEDURE: US Thyroid. TECHNIQUE: Multiple real-time grayscale images were obtained of the thyroid in various projections. INDICATION: Enlarged thyroid. Right lobe of thyroid measures 5.4 x 1.4 x 1.6 cm and the left lobe measures 4.7 x 1.3 x 1.5 cm. Isthmus is 2 mm in thickness. Right lobe contains a tiny approximately 2 to 3 mm hypoechoic nodule. Both lobes show fairly homogeneous echotexture. No dominant mass is detected. IMPRESSION: Essentially unremarkable thyroid ultrasound. Dictated by: Dictated on workstation # [id number]
== END ==
LOC: RAD 09:30
PROVIDERS: ATTEND Internal Medicine
DX: E04.9 Nontoxic goiter, unspecified (principal); G95.9 Disease of spinal cord, unspecified
CPT/HCPCS: 72156; 76536

== ENCOUNTER → 2022-01-14 | Outpatient (CLI) | payer BC ==
[~2022-01-14] MED LIST changes: +GADOTERATE 0.5 MMOL/ML (CLARISCAN) 15 ML VIAL IV ONE; -GADOTERATE 0.5 MMOL/ML (CLARISCAN) 20 ML VIAL IV ONE
--- NOTE | 2022-01-14 11:43 | Diagnostic Imaging Report ---
CLINICAL INDICATION: Patient is having trouble with bilateral arm paresthesia. Exam: MRI of the brain performed without and with 14 cc of Clariscan IV contrast. Sequences include axial DWI, ADC map, axial gradient echo, axial T2, axial FLAIR, sagittal FLAIR, axial T1, axial T1 post IV contrast, coronal T1 fat-sat post IV contrast, and sagittal T1 post IV contrast. Comparison: MRI of the brain with and without contrast dated 06/05/2016. Head CT without contrast dated 12/31/2021. Findings: There is a roughly 4 mm area of subcortical high T2 signal in the left frontal lobe region. There is a roughly 2 mm focal area of high T2 signal involving the subcortical high parasagittal left frontal lobe region. These areas are better seen on the axial T2 sequence on the prior study. The remainder of the brain parenchyma is unremarkable. There is no evidence of acute cerebral infarct, intracranial hemorrhage, or gross mass effect. There is no abnormal IV contrast enhancement. The brain parenchymal volume appears appropriate for patient's age. There is normal wilson-white matter distinction. There is no significant midline shift or herniation. The red devil of Garcia vascular structures show no gross abnormality as visualized. The pituitary gland, sella, and suprasellar regions are unremarkable as visualized. There is no evidence of hydrocephalus. The basal cisterns are unremarkable. The skull, extracranial soft tissue, and orbits are unremarkable. There is no significant paranasal sinus disease. Temporal bones show no significant abnormality. IMPRESSION: 1: There are 2 stable nonspecific small areas of high T2 signal involving the left frontal lobe region which are most likely inconsequential. 2: Otherwise, unremarkable MRI of the brain. Dictated by: Dictated on workstation # [id number]
== END ==
LOC: RAD 10:15
PROVIDERS: ATTEND Physician Assistant
DX: M62.81 Muscle weakness (generalized) (principal); R20.2 Paresthesia of skin
CPT/HCPCS: 70553

== ENCOUNTER → 2022-01-24 | Outpatient (CLI) | payer BC ==
[~2022-01-24] MED LIST changes: -GADOTERATE 0.5 MMOL/ML (CLARISCAN) 15 ML VIAL IV ONE
--- NOTE | 2022-01-24 15:01 | Diagnostic Imaging Report ---
INDICATION: Routine screening. COMPARISON is made with prior mammograms 01/23/2021 and 09/16/2019. 2-D and 3-D bilateral screening mammography was performed with CAD. Both breasts are heterogeneously dense, limiting the sensitivity of mammography. There are scattered benign calcifications. No mass or malignant-appearing microcalcifications are seen. Axillae are unremarkable. IMPRESSION: BI-RADS Category 2 No mammographic features suspicious for malignancy are identified. ACR BI-RADS Category 2: Benign findings. Result letter will be mailed to the patient. Note: At least 10% of breast cancer is not imaged by mammography. Dictated by: Dictated on workstation # [id number]
== END ==
LOC: RAD 08:00
PROVIDERS: ATTEND Physician Assistant
DX: Z12.31 Encounter for screening mammogram for malignant neoplasm of breast (principal)
CPT/HCPCS: 77063; 77067

== ENCOUNTER → 2022-04-10 | Outpatient (CLI) | payer BC ==
[~2022-04-10] VITALS: Ht 172.7 cm; Wt 74.1 kg
[~2022-04-10] MED LIST changes: +AMPH20TA2 PO; +BUPR200T7 PO; +VARE1TAB28 PO
== END | disposition home or self-care (01) ==
LOC: PREOP 05:31
PROVIDERS: ATTEND Obstetrics & Gynecology
DX: Z01.818 Encounter for other preprocedural examination (principal)

== ENCOUNTER 2022-04-17 13:22 | Day surgery (SDC) | payer BC ==
[2022-04-17] VITALS (9 sets, daily range): BP systolic 136–164; BP diastolic 85–103
[~2022-04-17] VITALS: Ht 172.7 cm; Wt 74.1 kg
--- NOTE | 2022-04-17 09:36 | Progress Note-Pre Operative ---
Pre-Operative Progress Note H&P Reviewed The H&P was reviewed, patient examined and no changes noted. Date Seen by Provider: Apr 17, 2022 Time Seen by Provider: 13:20 Date H&P Reviewed: Apr 17, 2022 Time H&P Reviewed: 13:20 Pre-Operative Diagnosis: Menometrorrhagia RANDY ARSHAD MD Apr 17, 2022 09:35
--- NOTE | 2022-04-17 09:36 | Progress Note-Post Operative ---
Post-Operative Progess Note Surgeon (s)/Agricultural Specialist (s) Surgeon RANDY ARSHAD MD Agricultural Specialist: Kadi Pre-Operative Diagnosis Menometrorrhagia Post-Operative Diagnosis Same with overt appendicitis and with pathology pending Procedure & Operative Findings Date of Procedure 04/17/22 Procedure Performed/Findings Total laparoscopic hysterectomy with bilateral salpingectomies and with laparoscopic adhesiolysis and laparoscopic appendectomy Anesthesia Type General Estimated Blood Loss Estimated blood loss (mL): Minimal Specimens/Packing Specimens Removed Uterus and fallopian tubes and appendix RANDY ARSHAD MD Apr 17, 2022 09:36
--- NOTE | 2022-04-17 09:40 | Discharge Inst-Surgical ---
Discharge Inst-Surgical Depart Medication/Instructions New, Converted or Re-Newed RX: Transmitted to Pharmacy Consults/Follow Up Patient Instructions: As directed Orders & Referrals Follow Up Appt: Return to clinic on Thursday, April 21, 2022 for staple removal Call to make follow up appt. for patient in 4 weeks. Activity: Rest for 24 hours, than as tolerated. Wound Care: May remove Band-Aid tomorrow. Replace as desired. Keep incisions clean and dry. Wash daily with soap and water. Prescriptions have been sent to patient's pharmacy from my office Diet: As tolerated shower or tub bathe as desired. No driving for 24 hours, no alcoholic beverages for 24 hours, and nothing per vagina (no tampons, douching, or intercourse) for 8 weeks. Patient to return to the clinic as soon as possible for: Temperature greater than 101F, Severe Pain, Foul discharge from incision or vagina, Excessive Bleeding (more than a period). Activity Activity as Tolerated: No Diet Discharge Diet: No Restrictions RANDY ARSHAD MD Apr 17, 2022 09:40
[~2022-04-17 13:22] MED LIST changes: +ESTROGENS CONJ INJECTION 25 MG in WATER (STERILE) FOR INJECTION 5 ML IV ONE; +ONDANSETRON 4 MG/2 ML (SDV) Z0FRAN IVP PRN; +PROMETHAZINE INJ 25 MG/ML (PHENERGAN) AMP IM PRN; +oxyCODONE/APAP 5/325MG (PERCOCET 5) TABLET PO PRN
[2022-04-17] MEDS ORDERED: LACTATED RINGERS 1,000 ML IV PRN (13:30)
[2022-04-17] MEDS ORDERED: ceFAZolin INJECTION 1,000 MG VIAL IV ONE (13:30)
[2022-04-17 13:56] LABS: BASOPHILS # (AUTO) 0.1 10^3/uL (0.0-0.1); BASOPHILS % (AUTO) 1 % (0-10); EOSINOPHILS % (AUTO) 1 % (0-10); HEMATOCRIT 49 % (35-52); HEMOGLOBIN 15.2 g/dL (11.5-16.0); LYMPHOCYTES # (AUTO) 1.8 10^3/uL (1.0-4.0); LYMPHOCYTES % (AUTO) 21 % (12-44); MEAN CORPUSCULAR HEMOGLOBIN 30 pg (25-34); MEAN CORPUSCULAR HGB CONC 31 g/dL (32-36); MEAN CORPUSCULAR VOLUME 97 fL (80-99); MEAN PLATELET VOLUME 11.9 fL (9.0-12.2); MONOCYTES # (AUTO) 0.6 10^3/uL (0.0-1.0); MONOCYTES % (AUTO) 7 % (0-12); NEUTROPHILS # (AUTO) 5.9 10^3/uL (1.8-7.8); NEUTROPHILS % (AUTO) 71 % (42-75); PLATELET COUNT 210 10^3/uL (130-400); WHITE BLOOD COUNT 8.4 10^3/uL (4.3-11.0)
[2022-04-17] MEDS ORDERED: proPOfol 200 MG/20 ML (DIPRIVAN) VIAL IV ONE (15:31)
[2022-04-17] MEDS ORDERED: ONDANSETRON 4 MG/2 ML (SDV) Z0FRAN ONE (15:31)
[2022-04-17] MEDS ORDERED: MIDAZOLAM 2 MG/2 ML (VERSED) VIAL ONE (15:31)
[2022-04-17] MEDS ORDERED: SEVOFLURANE (ULTANE) 15 ML INHAL SOLN ONE ×2 (15:31→16:05)
[2022-04-17] MEDS ORDERED: LIDOCAINE PF 2% 5 ML (XYLOCAINE) VIAL ONE (15:31)
[2022-04-17] MEDS ORDERED: fentaNYL INJ 100 MCG/2 ML AMP ONE (15:31)
[2022-04-17] MEDS ORDERED: LIDOCAINE/EPI 2% 1:100,00 (XYLOCAINE) 20 ML VIAL ONE (15:34)
[2022-04-17] MEDS ORDERED: ROCURONIUM 50 MG/5 ML (ZEMURON) VIAL IV ONE (16:05)
[2022-04-17] MEDS ORDERED: KETOROLAC 30 MG/ML VIAL ONE (16:47)
[2022-04-17] MEDS ORDERED: WATER (STERILE) FOR INJECTION 10 ML ONE (16:48)
[2022-04-17] MEDS ORDERED: ESTROGENS CONJ INJECTION 5 ML ONE (16:49)
[2022-04-17] MEDS ORDERED: morphine INJ 10 MG/ML 1ML (SYR OR VIAL) ONE (16:53)
[2022-04-17] MEDS ORDERED: GLYCOPYRROLATE 0.2 MG/ML (ROBINUL) 2 ML VIAL ONE (17:09)
[2022-04-17] MEDS ORDERED: NEOSTIGMINE (BLOXIVERZ ) 1 MG/1ML 10 ML VIAL ONE (17:09)
[2022-04-17] MEDS ORDERED: morphine INJ 10 MG/ML 1ML (SYR OR VIAL) IVP ONE (17:30)
[2022-04-17] MEDS ORDERED: ONDANSETRON 4 MG/2 ML (SDV) Z0FRAN IVP PRN (17:30)
[2022-04-17] MEDS ORDERED: MEPERIDINE (DEMEROL) INJ 50 MG/ML IVP ONE (17:30)
[2022-04-17] MEDS ORDERED: fentaNYL INJ 100 MCG/2 ML AMP IVP ONE (17:30)
[2022-04-17] MEDS ORDERED: HYDROmorphone 2 MG/ML VIAL (DILAUDID) IV ONE (17:30)
[2022-04-17] MEDS: KETOROLAC 30 MG/ML VIAL IVP SCH ×2 (17:31→17:32)
[2022-04-17] MEDS: D5 LR IV SOLUTION 1,000 ML IV SCH (20:08)
[2022-04-17] MEDS: DOCUSATE SODIUM 100 MG (COLACE) CAP PO SCH (21:00)
[2022-04-17] MEDS ORDERED: CHLORASEPTIC LOZENGE MM PRN (22:30)
[2022-04-17] MEDS: fentaNYL INJ 100 MCG/2 ML AMP IVP PRN (22:54)
[2022-04-18 00:47] VITALS: BP 121/79
[2022-04-18] MEDS: KETOROLAC 30 MG/ML VIAL IVP SCH ×2 (00:47→06:43)
[2022-04-18] MEDS: D5 LR IV SOLUTION 1,000 ML IV SCH (02:01)
[2022-04-18 04:25] VITALS: BP 126/82
--- NOTE | 2022-04-18 04:32 | OPERATIVE REPORT ---
DATE OF SERVICE: 04/17/2022 PREOPERATIVE DIAGNOSES: Menorrhagia and menometrorrhagia. PREOPERATIVE DIAGNOSES: Menorrhagia, menometrorrhagia, and appendicitis. OPERATIVE PROCEDURE: Total laparoscopic hysterectomy with bilateral salpingectomies as well as aspiration of bilateral ovarian cysts and laparoscopic adhesiolysis and laparoscopic appendectomy. OPERATIVE DESCRIPTION: With the patient in the supine position under satisfactory general anesthesia, she was repositioned in dorsal lithotomy position in the [facility] and prepped and draped in the usual fashion for abdominal and vaginal surgery using da Jillian assistance. Weighted speculum placed in the posterior fornix of vagina, cervix exposed and grasped anteriorly with single tooth tenaculum. Uterus was sounded to 12 cm with uterine sound. The cervix was then serially dilated with Arron dilators to accommodate a Chelsey II manipulator, which was placed using a 6 mm x 8 cm uterine probe and a 25 mm colpotomy ring. Quinones catheter was placed in the urinary bladder and the patient was then brought in low dorsal lithotomy position. A 12 mm incision was made 10 cm superior to the umbilicus. Veress needle was placed through that incision into the abdominal cavity. Correct placement was confirmed with water drop test and the abdomen was insufflated with 2.4 liters of carbon dioxide. The Veress needle was removed and a 12 mm Optiview laparoscopic port was placed. Abdominal wall was transilluminated and 8 mm ports were placed through incisions of those sizes 8 cm lateral to the umbilicus at a level about 3 cm above the umbilicus. All three port sites were infiltrated with 1% lidocaine with epinephrine prior to incision. The patient was now placed in Trendelenburg allowing most of the bowel spill out of the pelvis. The appendix and the cecum were adherent to the terminus of the right pericolic gutter. Adhesiolysis was performed in that area to free the cecum and free the appendix. Appendix was engorged and injected consistent with appendicitis, and decision was made to go ahead with appendectomy. The balance of the pelvis was examined. The fallopian tubes were somewhat clubbed. There were simple appearing cysts on both ovaries. These had benign appearance. The uterus was large and somewhat mottled in appearance consistent with adenomyosis. Decision was made to proceed with the intended procedure and conserve the ovaries. The right fallopian tube was grasped and elevated. The mesosalpinx was clamped, cauterized and divided over to the uteroovarian pedicle. That pedicle was clamped, cauterized and divided. Dissection was continued across the round ligament, across the broad ligament down to the cardinal ligament, allowing for removal of the fallopian tube on the right with the uterus eventually. Same procedure performed on the left, allowing for also removal of the left fallopian tube with conservation of both ovaries. Both ureters were seemed to peristalse well away from the areas of dissection. Anterior lower uterine segment peritoneum was now divided using a monopolar shear in place of the vessel sealer. The colpotomy incision was started at 12 o'clock position onto the colpotomy ring. That incision was continued circumferentially until the entire colpotomy ring was exposed. The uterus, appendix was then extracted through the vagina with the tubes still attached. Vaginal cuff was closed with a single suture V-Loc barbed suture starting from the right angle and continued across to the left angle taking care to ensure inclusion of the uterine vessel pedicles bilaterally. Hemostasis was complete. There was no remaining pathology of any note in the pelvis. The appendix had been skeletonized on to its base with the vessel sealer dividing the mesoappendix and the adhesions of the cecum and the appendix to the pelvic brim into the terminus of the right pericolic gutter. At this point, the Endo-MARIA ESTHER was placed through the umbilical port. A grasper was placed through the left lateral port. The camera was moved to the right lateral port. The appendix was visualized, grasped and elevated and then the Endo GI was placed across the base of the appendix and fired, it severed the appendix from its attachments. The appendix was placed in the Endobag and brought out through the umbilical port. The stump of the appendix was copiously irrigated. The pelvis was irrigated. There was fluid in the pelvis from aspiration of the several follicular cysts on each ovary. This was aspirated out at this point as well. The stump of the appendix was then treated with several drops of Betadine solution. With the prescribed portion of the procedure complete, the operative instruments were removed as were the ports. The abdomen was evacuated of insufflating gas in the process of removing the ports. Skin incisions were closed with soha. The fascia at the supraumbilical incision was closed with [id number] suture of 2-0 Vicryl. A speculum was placed in the vagina. The vaginal cuff was examined. It was completely hemostatic and completely reapproximated. With sponge and needle counts correct, hemostasis assured. BLOOD LOSS: Minimal. The patient was now uneventfully awakened from her general anesthesia and transferred to recovery room in stable condition. Job ID: [id number] DocumentID: [id number] Dictated Date: 04/17/2022 18:09:34 Data Analysis Manager Date: 04/18/2022 04:32:36 Dictated By: RANDY ARSHAD MD MTDD
[2022-04-18] MEDS: fentaNYL INJ 100 MCG/2 ML AMP IVP PRN (06:50)
[2022-04-18] MEDS ORDERED: DOCUSATE SODIUM 100 MG (COLACE) CAP PO SCH (09:00)
--- NOTE | 2022-04-18 09:06 | Progress Note ---
Standard Progress Note Progress Notes/Assess & Plan Date Seen by a Provider: Apr 18, 2022 Time Seen by a Provider: 09:04 Progress/Assessment & Plan This patient is without complaint. She is ambulating, tolerating oral intake, her Quinones catheter is just been removed she has not voided yet. She does indicate that she has some pain but has not had pain medication and otherwise has had good pain control. Vital Signs Date Time Temp Pulse Resp B/P (MAP) Pulse Ox O2 Delivery O2 Flow Rate FiO2 04/18/22 04:25 36.2 55 16 126/82 (97) 96 Room Air 04/18/22 00:47 36.7 52 16 121/79 (93) 98 Room Air 04/17/22 21:27 Room Air 04/17/22 20:05 36.5 66 16 142/85 (104) 97 Room Air 04/17/22 18:16 36.4 53 16 164/97 (119) 98 Room Air 04/17/22 18:10 Room Air 04/17/22 18:00 36.5 14 152/102 (119) 100 Room Air 04/17/22 18:00 Room Air 04/17/22 17:50 13 145/103 (117) 100 OxyMask 3.00 04/17/22 17:45 OxyMask 8 04/17/22 17:40 12 148/103 (118) 100 OxyMask 3.00 04/17/22 17:30 12 155/99 (117) 100 OxyMask 8 04/17/22 17:30 OxyMask 8 04/17/22 17:20 12 138/97 (111) 100 OxyMask 8 04/17/22 17:17 36.8 16 136/93 (107) 100 OxyMask 8 04/17/22 17:17 OxyMask 8 04/17/22 14:06 36.7 105 18 140/95 (110) 98 Room Air I & O 04/18/22 07:00 Intake Total 1110 ml Output Total 615 ml Balance 495 ml Vital signs are stable. Blood pressures been slightly labile but are acceptable. The abdomen is benign Extremities show no clubbing cyanosis. There is no Homans' sign. Pelvic exam was deferred Assessment and plan Postoperative day #1 doing well. Plan is for routine convalescent care with eventual discharge home today and follow-up in clinic Final Diagnosis Menorrhagia RANDY ARSHAD MD Apr 18, 2022 09:06
[2022-04-18 09:30] VITALS: BP 110/74
[2022-04-18] MEDS: DOCUSATE SODIUM 100 MG (COLACE) CAP PO SCH (09:42)
--- NOTE | 2022-04-18 10:49 | Anesthesia-General Post-Op ---
General Patient Condition Mental Status/LOC: Same as Preop Cardiovascular: Satisfactory Nausea/Vomiting: Absent Respiratory: Satisfactory Pain: Controlled Complications: Absent Post Op Complications Complications None Follow Up Care/Instructions Patient Instructions None needed. Anesthesia/Patient Condition Patient Condition Patient is doing well, no complaints, stable vital signs, no apparent adverse anesthesia problems. No complications reported per nursing. NICHOLAS WOODS CRNA Apr 18, 2022 10:49
[2022-04-18] MEDS ORDERED: IBUPROFEN 800 MG (MOTRIN) TAB PO SCH (12:00)
[2022-04-18 12:50] VITALS: BP 133/92
[2022-04-18 14:06] VITALS: BP 133/92
== END 2022-04-18 15:40 | disposition home or self-care (01) ==
LOC: SDC 13:22 → WS 18:15 → SDC 04-18 15:40
PROVIDERS: ATTEND Obstetrics & Gynecology
DX: N84.1 Polyp of cervix uteri (principal); N92.0 Excessive and frequent menstruation with regular cycle; K37 Unspecified appendicitis
CPT/HCPCS: 36415; 84703; 85025; 87081; 94664

== ENCOUNTER → 2022-10-20 | Outpatient (CLI) | payer BC ==
[~2022-10-20] MED LIST changes: -ESTROGENS CONJ INJECTION 25 MG in WATER (STERILE) FOR INJECTION 5 ML IV ONE; -ONDANSETRON 4 MG/2 ML (SDV) Z0FRAN IVP PRN; -PROMETHAZINE INJ 25 MG/ML (PHENERGAN) AMP IM PRN; -oxyCODONE/APAP 5/325MG (PERCOCET 5) TABLET PO PRN
--- NOTE | 2022-10-20 17:46 | Diagnostic Imaging Report ---
HISTORY: Soft tissue mass COMPARISON: None TECHNIQUE: Ultrasound of the soft tissues of the right lower extremity FINDINGS: Ultrasound is performed in the soft tissues in the area of the palpable abnormality at the right buttock. There is mild subcutaneous edema. No mass or fluid collection is seen. IMPRESSION: 1. Mild subcutaneous edema with no mass or fluid collection seen in the area of the palpable abnormality. Dictated by: Dictated on workstation # [id number]
== END ==
LOC: RAD 14:45
PROVIDERS: ATTEND Surgery
DX: R60.0 Localized edema (principal)
CPT/HCPCS: 76881

== ENCOUNTER 2022-10-22 22:42 | Emergency (ER) | payer BC ==
[~2022-10-22] VITALS: Ht 172.7 cm; Wt 68.0 kg
[2022-10-22 23:09] VITALS: BP 112/87
--- NOTE | 2022-10-22 23:13 | ED Cardiac General ---
History of Present Illness General Chief Complaint: Cardiac/General Problems Stated Complaint: SOB, OXYGEN IS LOW Source: patient History of Present Illness Date Seen by Provider: Oct 22, 2022 Time Seen by Provider: 23:10 Initial Comments PT ARRIVES VIA POV FROM HOME C/O HEART POUNDING/BEATING HARD C/O SHORTNESS OF BREATH--STATES HER O2 SAT WAS "70%" AT HOME AND HER PULSE WAS "30"--O2 SAT IS 100% ON ROOM AIR HERE, AND HR IN 70'S. (PT HAS ON BLACK NAIL HUNGARIAN) STATES SYMPTOMS BEGAN 1-2 HOURS AGO WHILE LAYING DOWN. SHE STATES THIS HAPPENS EVERY NIGHT WHEN SHE LAYS DOWN TO SLEEP. HAS BEEN GOING ON EVERY NIGHT SINCE AT LEAST FEBRUARY OF 2021. STATES SHE HAS PALPITATIONS EVERY NIGHT WHEN SHE LAYS DOWN TO SLEEP. STATES IT WAS "MORE INTENSE" TONIGHT STATES "I WAS COUNTING THE SECONDS BETWEEN HEART BEATS, FOR MY HEART TO START BEATING AGAIN, AND WAITING FOR MY BRAIN TO SHUT OFF AND " STATES HER IN 2004 OF HEART PROBLEMS AND STATES SHE THINKS ABOUT SYMPTOMS THAT HE HAD BEFORE HE . ( SHE IS CURRENTLY AGAIN) SHE HAS NOT HAD COUGH OR FEVER OR RECENT RESPIRATORY ILLNESS NO SWELLING IN LEGS OR FEET SHE HAS BEEN TO DR BAEZ FOR THIS PROBLEM AND HAD A NORMAL CARDIAC CATH. SHE HAS SEEN AN RELIEF SALESPERSON AT , WHO REFERRED HER TO NEUROLOGIST, WHICH SHE HAS BEEN SEEN BY NEUROLOGISTS AND MULTIPLE SPECIALISTS--ALL WITH NO DIAGNOSI S OF ANY CARDIAC OR NEUROLOGICAL PROBLEMS. SHE HAS HAD EXTENSIVE TESTS DONE BY CARDIOLOGY AND NEUROLOGY, WITH MRI'S, ETC. SHE WAS SEEN BY NURSERY TEACHER AT TODAY AND HAD LAB DONE. NO RESULTS. 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 SHE ALSO HAD AN ULTRASOUND OF HER BUTTOCK AREA ON THURSDAY--STATES "THERES AN INDENTION WHERE THE MUSCLE IS PULLING AWAY" SHE STATES "THE NERVE STUFF STARTED FIRST, THEN THE HEART STUFF" SHE HAD PAIN IN BOTH OF HER ARMS A FEW MONTHS BEFORE THE PALPITATIONS BEGAN. SHE TAKES METOPROLOL 50 MG BID, VALIUM 10 MG BID ( TOOK ONE JUST PRIOR TO ARRIVAL), ADDERALL 20 MG BID, BUPROPRION 150 MG BID ( BUT HAS NOT BEEN TAKING THAT FOR A FEW MONTHS--SELF DC'D ), OMEPRAZOLE 10 MG DAILY, ASPIRIN 81 MG. SHE ALSO VAPED JUST PRIOR TO ARRIVAL SHE HAS HAD COVID VACCINE X 1--ASH/ASH IN 2020; FLU VACCINE IN 2021. PCP: DR. BUTLER ACCOUNTING MANAGER ASSISTANT CONTROLLER: DR. BAEZ Allergies and Home Medications Allergies Coded Allergies: No Known Drug Allergies (Unverified , 04/14/22) Patient Home Medication List Home Medication List Reviewed: Yes Aspirin (Aspirin) 81 Mg Tab.chew, 81 MG PO DAILY, (Reported) Entered as Reported by: SAGE PARK on 06/04/21 0900 Bupropion HCl (Bupropion HCl Sr) 200 Mg Tablet.er, 200 MG PO BID, (Reported) Entered as Reported by: NEETA BOLAND on 04/14/22 1014 Dextroamphetamine/Amphetamine (Adderall 20 mg Tablet) 20 Mg Tablet, 20 MG PO BID, (Reported) Entered as Reported by: NEETA BOLAND on 04/14/22 1014 Diazepam (Valium) 10 Mg Tablet, 10 MG PO DAILY PRN for ANXIETY, (Reported) Entered as Reported by: SAGE PARK on 06/04/21 0900 Metoprolol Succinate (Toprol Xl) 25 Mg Tab.er.24h, 25 MG PO BID, (Reported) Entered as Reported by: SAGE PARK on 06/04/21 0900 Varenicline Tartrate (Varenicline) 0.5 Mg (11)-1 Mg (42) Tab.ds.pk, 1 EACH PO UD, (Reported) Entered as Reported by: NEETA BOLAND on 04/14/22 1014 Review of Systems Review of Systems Constitutional: no symptoms reported EENTM: No Symptoms Reported Respiratory: See HPI, Shortness of Air Cardiovascular: See HPI; Denies Chest Pain; Palpitations Gastrointestinal: No Symptoms Reported Genitourinary: No Symptoms Reported Musculoskeletal: no symptoms reported Skin: no symptoms reported Psychiatric/Neurological: Anxiety; Denies Numbness, Denies Paresthesia, Denies Weakness Endocrine: No Symptoms Reported Hematologic/Lymphatic: No Symptoms Reported Past Aywjuhz-Txtroi-Vkyemr Hx Patient Social History Use of E-Cig and/or Vaping dev: Yes E-Cig or Vaping type used: Nicotine Use of E-Cig and/or Vaping Jarrett: Current Everyday User Substance use?: Yes Substance type: Marijuana Alcohol Use?: No Immunizations Up To Date Tetanus Booster (TDap): Less than 5yrs PED Vaccines UTD: Yes First/Initial COVID19 Vaccinat: 06/2021 Second COVID19 Vaccination Masoud: YES Seasonal Allergies Seasonal Allergies: Yes Past Medical History Surgery/Hospitalization HX: CARDIAC CATH 06/04/[address] BAEZ: CONCLUSIONS: 1. No angiographically significant coronary artery disease. 2. Normal left ventricular end-diastolic pressure. 3. Normal global left ventricular systolic function with ejection fraction approximately 60%. Surgeries: Yes (LAP BAND, EAR CYST REMOVAL, WISDOM TEETH) Section, Gallbladder, Hysterectomy Respiratory: No Currently Using CPAP: No Currently Using BIPAP: No Cardiac: Yes (FACTOR V, PVC'S, HEART RHYTHM ISSUES, BICUSPID VALVE NEEDS WATCHED) Deep Vein Thrombosis, Palpitations Neurological: Yes (TWICE) Meningitis Reproductive Disorders: No Female Reproductive Disorders: Menstrual Problems Sexually Transmitted Disease: No HIV/AIDS: No Genitourinary: Yes (INTERMITENT INCONTINENCE) Gastrointestinal: Yes Gastroesophageal Reflux, Gall Bladder Disease Musculoskeletal: Yes Degenerate Disk Disease Endocrine: Yes (ENLARGED THYROID) HEENT: Yes Cataract Cancer: Yes Skin Did You Recieve Any Treatments: Yes What Type of Treatment Did You: Surgical Intervention Psychosocial: Yes (INSOMNIA) ADD/ADHD, Anxiety, Depression Integumentary: Yes (SKIN CANCER POSTERIOR NECK) 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 ) Family Medical History Cardiovascular disease 19 FATHER Cataracts 19 MOTHER Congenital heart disease 19 FATHER Diabetes mellitus 19 FATHER Fibrocystic disease of breast 19 MOTHER Headache disorder G8 BROTHER Hypercholesterolemia 19 MOTHER Hypertension G8 BROTHER Psychosocial problem 19 MOTHER Respiratory disorder 19 MOTHER Thyroid disease 19 MOTHER Visual disorder 19 MOTHER No Family History of: AIDS Abdominal aortic aneurysm Reynolds's disease Alcoholism Alzheimer's disease Aphasia Arthritis Asthma Cancer of mouth Colon cancer Completed stroke Congenital disease Coronary thrombosis Cystic fibrosis Deafness or hearing loss Dementia Drug abuse Dysphasia Gastroenteritis Glaucoma Infertility Kidney disease Myocardial infarction Neoplasm Not obtainable due to adoption Osteoporosis Parkinson's disease Prostate cancer Seizure disorder Severe allergy Tuberculosis No Pertinent Family Hx PAST SURGICAL HISTORY: -HYSTERECTOMY / OVARIES INTACT 04/2022 -APPENDECTOMY -LAP BAND SURGERY - X 3 -LAP CHOLECYSTECTOMY -EGD -EAR SURGERY FOR CYST REMOVAL Physical Exam Vital Signs Vital Signs - First Documented 10/22/22 23:09 Temp 36.6 Pulse 82 Resp 12 B/P (MAP) 112/87 (95) Capillary Refill : Height, Weight, BMI Height: 5'8.00" Weight: 150lbs. 0.2oz. [id number]; 24.84 BMI Method:Stated General Appearance: No Apparent Distress, WD/WN, Anxious, Other (DRYING, EXTREMELY ANXIOUS) HEENT: PERRL/EOMI Neck: Normal Inspection Respiratory: Normal Breath Sounds, No Accessory Muscle Use, No Respiratory Distress Cardiovascular: Regular Rate, Rhythm, No Edema, No JVD, No Murmur, Normal Peripheral Pulses Gastrointestinal: Non Tender, Soft Extremity: Normal Capillary Refill, Normal Inspection, Normal Range of Motion, Non Tender, No Calf Tenderness, No Pedal Edema Neurologic/Psychiatric: Alert, Oriented x3, No Motor/Sensory Deficits, web content developer II- XII Norm as Tested Skin: Normal Color, Warm/Dry Progress/Results/Core Measures Results/Orders Lab Results Laboratory Tests Test 10/22/22 23:22 10/22/22 23:25 10/22/22 23:30 Range/Units Influenza Type A (RT-PCR) Not Detected Not Detecte Influenza Type B (RT-PCR) Not Detected Not Detecte SARS-CoV-2 RNA (RT-PCR) Not Detected Not Detecte Urine Color YELLOW Urine Clarity SL CLOUDY Urine pH 5.5 5-9 Urine Specific [place] >=1.030 1.016-1.022 Urine Protein NEGATIVE NEGATIVE Urine Glucose (UA) NEGATIVE NEGATIVE Urine Ketones NEGATIVE NEGATIVE Urine Nitrite NEGATIVE NEGATIVE Urine Bilirubin NEGATIVE NEGATIVE Urine Urobilinogen 0.2 < = 1.0 MG/DL Urine Leukocyte Esterase NEGATIVE NEGATIVE Urine RBC (Auto) NEGATIVE NEGATIVE Urine RBC NONE /HPF Urine WBC RARE /HPF Urine Squamous Epithelial Cells 5-10 /HPF Urine Crystals NONE /LPF Urine Bacteria MODERATE H /HPF Urine Casts NONE /LPF Urine Mucus NEGATIVE /LPF Urine Culture Indicated YES Urine Opiates Screen NEGATIVE NEGATIVE Urine Oxycodone Screen NEGATIVE NEGATIVE Urine Methadone Screen NEGATIVE NEGATIVE Urine Propoxyphene Screen NEGATIVE NEGATIVE Urine Barbiturates Screen NEGATIVE NEGATIVE Ur Tricyclic Antidepressants Screen NEGATIVE NEGATIVE Urine Phencyclidine Screen NEGATIVE NEGATIVE Urine Amphetamines Screen POSITIVE H NEGATIVE Urine Methamphetamines Screen NEGATIVE NEGATIVE Urine Benzodiazepines Screen POSITIVE H NEGATIVE Urine Cocaine Screen NEGATIVE NEGATIVE Urine Cannabinoids Screen POSITIVE H NEGATIVE White Blood Count 9.4 4.3-11.0 10^3/uL Red Blood Count 4.97 3.80-5.11 10^6/uL Hemoglobin 15.1 11.5-16.0 g/dL Hematocrit 44 35-52 % Mean Corpuscular Volume 89 80-99 fL Mean Corpuscular Hemoglobin 30 25-34 pg Mean Corpuscular Hemoglobin Concent 34 32-36 g/dL Red Cell Distribution Width 13.1 10.0-14.5 % Platelet Count 206 130-400 10^3/uL Mean Platelet Volume 11.3 9.0-12.2 fL Immature Granulocyte % (Auto) 0 % Neutrophils (%) (Auto) 64 42-75 % Lymphocytes (%) (Auto) 28 12-44 % Monocytes (%) (Auto) 6 0-12 % Eosinophils (%) (Auto) 1 0-10 % Basophils (%) (Auto) 1 0-10 % Neutrophils # (Auto) 6.0 1.8-7.8 10^3/uL Lymphocytes # (Auto) 2.7 1.0-4.0 10^3/uL Monocytes # (Auto) 0.6 0.0-1.0 10^3/uL Eosinophils # (Auto) 0.1 0.0-0.3 10^3/uL Basophils # (Auto) 0.1 0.0-0.1 10^3/uL Immature Granulocyte # (Auto) 0.0 0.0-0.1 10^3/uL Erythrocyte Sedimentation Rate 2 0-20 MM/HR Prothrombin Time 13.1 12.2-14.7 SEC INR Comment 0.9 0.8-1.4 Activated Partial Thromboplast Time 30 24-35 SEC D-Dimer 0.33 0.00-0.49 UG/ML Sodium Level 138 135-145 MMOL/L Potassium Level 3.6 3.6-5.0 MMOL/L Chloride Level 105 98-107 MMOL/L Carbon Dioxide Level 25 21-32 MMOL/L Anion Gap 8 5-14 MMOL/L Blood Urea Nitrogen 12 7-18 MG/DL Creatinine 0.83 0.60-1.30 MG/DL Estimat Glomerular Filtration Rate 89 BUN/Creatinine Ratio 14 Glucose Level 82 70-105 MG/DL Calcium Level 9.6 8.5-10.1 MG/DL Corrected Calcium 9.5 8.5-10.1 MG/DL Magnesium Level 1.9 1.6-2.4 MG/DL Total Bilirubin 0.5 0.1-1.0 MG/DL Aspartate Amino Transf (AST/SGOT) 22 5-34 U/L Alanine Aminotransferase (ALT/SGPT) 42 0-55 U/L Alkaline Phosphatase 54 40-136 U/L Total Creatine Kinase 53 29-168 U/L Creatine Kinase MB 0.9 <6.6 NG/ML Myoglobin 42.9 10.0-92.0 NG/ML Troponin I < 0.028 <0.028 NG/ML C-Reactive Protein High Sensitivity 0.04 0.00-0.50 MG/DL B-Type Natriuretic Peptide 23.2 <100.0 PG/ML Total Protein 6.9 6.4-8.2 GM/DL Albumin 4.1 3.2-4.5 GM/DL TSH Porter Testing 1.72 0.35-4.94 UIU/ML Serum Test, Qualitative NEGATIVE NEGATIVE My Orders Orders - HARDIK MOHAMUD DO Ed Iv/Invasive Line Start (10/22/22 23:10) Ekg Tracing (10/22/22 23:10) O2 (10/22/22 23:10) Monitor-Rhythm Ecg Trace Only (10/22/22 23:10) Chest 1 View, Ap/Pa Only (10/22/22 23:10) Bnp Clarke (10/22/22 23:10) Cbc With Automated Diff (10/22/22 23:10) Comprehensive Metabolic Panel (10/22/22 23:10) Creatine Kinase (10/22/22 23:10) Creatine Kinase Mb (10/22/22 23:10) Hs C Reactive Protein (10/22/22 23:10) Fibrin Degradation Products (10/22/22 23:10) Drug Screen Stat (Urine) (10/22/22 23:10) Hcg,Qualitative Serum (10/22/22 23:10) Magnesium (10/22/22 23:10) Protime With Inr (10/22/22 23:10) Partial Thromboplastin Time (10/22/22 23:10) Thyroid Analyzer (10/22/22 23:10) Ua Culture If Indicated (10/22/22 23:10) Erythrocyte Sedimentation Rate (10/22/22 23:10) Myoglobin Serum (10/22/22 23:10) Troponin I Clarke (10/22/22 23:10) Covid 19 Inhouse Test (10/22/22 23:10) Influenza A And B By Pcr (10/22/22 23:10) Isolation Central Supply Req (10/22/22 23:10) Urine Culture (10/22/22 23:25) Vital Signs/I&O 10/22/22 23:09 Temp 36.6 Pulse 82 Resp 12 B/P (MAP) 112/87 (95) Progress Progress Note : Progress Note COVID AND FLU TESTING DONE, AND ARE BOTH NEGATIVE EKG IS NORMAL, AND THERE HAVE BEEN NO ARRHYTHMIAS OF ANY KIND DURING ER STAY ALL VITALS HAVE BEEN NORMAL, INCLUDING O2 SAT OF 100% THROUGHOUT ER STAY CARDIAC ENZYMES AND D-DIMER ARE ALSO NEGATIVE. LAB IS UNREMARKABLE. NO DYSPNEA NO CHEST PAIN PT CALMED SOMEWHAT DURING COURSE OF ER STAY, AND IS NO LONGER CRYING. REVIEWED PREVIOUS RECORDS, INCLUDING ER VISITS, ADMITS, H&P'S, PROCEDURES/TESTS, CONSULTS, DISCHARGE SUMMARIES REVIEWED TEST RESULTS, ANTICIPATED COURSE, MEDICATIONS, SYMPTOMATIC TREATMENT, NEED FOR FOLLOW UP AND RETURN PRECAUTIONS DISCUSSED WITH PT. PT STATES SHE HAS "ALL KINDS OF APPOINTMENTS WITH ALL KINDS OF DOCTORS" SCHEDULED FOR THESE CHRONIC ISSUES. Initial ECG Impression Date: Oct 23, 2022 Initial ECG Impression Time: 00:06 Initial ECG Rate: 71 Initial ECG Rhythm: Normal Sinus Initial ECG Impression: Normal Diagnostic Imaging Comments CXR--NO ACUTE PROCESS, PENDING RADIOLOGIST REVIEW Reviewed: Reviewed by Me Departure Impression Primary Impression: Anxiety Additional Impression: SUBJECTIVE PALPITATIONS Disposition: 01 HOME, SELF-CARE Condition: Stable Departure-Patient Inst. Decision time for Depature: 00:45 Referrals: WALTER BUTLER MD (PCP/Family) Primary Care Physician Patient Instructions: Anxiety, Adult (DC), Palpitations ED Add. Discharge Instructions: HOME, REST TAKE YOUR MEDICATIONS PRESCRIBED, INCLUDING BUPROPRION FOLLOW UP WITH DR. BUTLER THIS WEEK FOR FURTHER CARE RETURN TO ER IF SYMPTOMS WORSEN All discharge instructions reviewed with patient and/or family. Voiced understanding. HARDIK MOHAMUD DO Oct 22, 2022 23:13
[2022-10-22 23:32] LABS: BILIRUBIN,URINE NEGATIVE (NEGATIVE); COLOR,URINE YELLOW; GLUCOSE, URINE (UA) NEGATIVE (NEGATIVE); KETONES,URINE NEGATIVE (NEGATIVE); LEUKOCYTE ESTERASE ,URINE NEGATIVE (NEGATIVE); NITRITE,URINE NEGATIVE (NEGATIVE); PH,URINE 5.5 (5-9); PROTEIN,URINE NEGATIVE (NEGATIVE)
[2022-10-22 23:41] LABS: BASOPHILS # (AUTO) 0.1 10^3/uL (0.0-0.1); BASOPHILS % (AUTO) 1 % (0-10); EOSINOPHILS # (AUTO) 0.1 10^3/uL (0.0-0.3); EOSINOPHILS % (AUTO) 1 % (0-10); HEMATOCRIT 44 % (35-52); HEMOGLOBIN 15.1 g/dL (11.5-16.0); LYMPHOCYTES # (AUTO) 2.7 10^3/uL (1.0-4.0); LYMPHOCYTES % (AUTO) 28 % (12-44); MEAN CORPUSCULAR HEMOGLOBIN 30 pg (25-34); MEAN CORPUSCULAR HGB CONC 34 g/dL (32-36); MEAN CORPUSCULAR VOLUME 89 fL (80-99); MEAN PLATELET VOLUME 11.3 fL (9.0-12.2); MONOCYTES # (AUTO) 0.6 10^3/uL (0.0-1.0); MONOCYTES % (AUTO) 6 % (0-12); NEUTROPHILS % (AUTO) 64 % (42-75); PLATELET COUNT 206 10^3/uL (130-400); WHITE BLOOD COUNT 9.4 10^3/uL (4.3-11.0)
[2022-10-22 23:43] LABS: BACTERIA,URINE MODERATE /HPF; CLARITY,URINE SL CLOUDY; WBC,URINE RARE /HPF
[2022-10-22 23:50] LABS: AMPHETAMINE SCREEN, URINE POSITIVE (NEGATIVE); BARBITURATE SCREEN URINE NEGATIVE (NEGATIVE); BENZODIAZEPINES SCREEN URINE POSITIVE (NEGATIVE); CANNABINOID SCREEN, URINE POSITIVE (NEGATIVE); COCAINE SCREEN URINE NEGATIVE (NEGATIVE); METHADONE STAT NEGATIVE (NEGATIVE); OPIATE SCREEN URINE NEGATIVE (NEGATIVE); OXYCODONE STAT NEGATIVE (NEGATIVE); PROPOXYPHENE STAT NEGATIVE (NEGATIVE); TRICYCLIC ANTIDEPRESSANTS SCRE NEGATIVE (NEGATIVE)
[2022-10-23] LABS: ERYTHROCYTE SEDIMENTATION RATE 2 MM/HR (0-20)
[2022-10-23 00:02] LABS: ALBUMIN 4.1 GM/DL (3.2-4.5); CHLORIDE 105 MMOL/L (98-107); POTASSIUM 3.6 MMOL/L (3.6-5.0); SODIUM 138 MMOL/L (135-145)
[2022-10-23 00:03] LABS: CALCIUM 9.6 MG/DL (8.5-10.1)
[2022-10-23 00:05] LABS: GLUCOSE 82 MG/DL (70-105); TOTAL PROTEIN 6.9 GM/DL (6.4-8.2)
[2022-10-23 00:06] LABS: BILIRUBIN,TOTAL 0.5 MG/DL (0.1-1.0); CARBON DIOXIDE 25 MMOL/L (21-32)
[2022-10-23 00:08] LABS: ALKALINE PHOSPHATASE 54 U/L (40-136); CREATININE SERUM 0.83 MG/DL (0.60-1.30); GFR ESTIMATED 89
[2022-10-23 00:09] LABS: BUN/CREATININE RATIO 14
[2022-10-23 00:11] LABS: ALANINE AMINOTRANSFERASE 42 U/L (0-55); MAGNESIUM 1.9 MG/DL (1.6-2.4)
[2022-10-23 00:12] LABS: CREATINE KINASE 53 U/L (29-168); FIBRIN DEGRADATION PRODUCTS 0.33 UG/ML (0.00-0.49); INR 0.9 (0.8-1.4); PROTHROMBIN TIME PATIENT 13.1 SEC (12.2-14.7)
[2022-10-23 00:18] LABS: CREATINE KINASE MB 0.9 NG/ML (<6.6)
[2022-10-23 00:32] LABS: TSH (THYROID ANALYZER) 1.72 UIU/ML (0.35-4.94)
--- NOTE | 2022-10-23 05:28 | Diagnostic Imaging Report ---
INDICATION: Chest pain and dyspnea. Comparison is made with prior examination 04/02/2018. FINDINGS: The heart size, mediastinal configuration, and pulmonary vascularity are within normal limits. There is no pleural effusion, pneumothorax, or pneumonia. The osseous structures are unremarkable. IMPRESSION: No acute cardiopulmonary abnormality. Dictated by: Dictated on workstation # [id number]
== END 2022-10-23 00:51 | disposition home or self-care (01) ==
LOC: EDUNIT# 22:42 → ER 22:44
DX: F41.9 Anxiety disorder, unspecified (principal); R00.2 Palpitations; F17.200 Nicotine dependence, unspecified, uncomplicated; Z20.822 Contact with and (suspected) exposure to COVID-19
CPT/HCPCS: 36415; 71045; 80053; 80306; 81000; 82550; 82553; 83735; 83874; 83880; 84443; 84484; 84703; 85025; 85379; 85610; 85652; 85730; 86141; 87088; 87636; 93005; 93041

== ENCOUNTER 2023-04-02 08:32 | Outpatient (RCR) | payer BC | END 2023-04-02 10:35 | disposition home or self-care (01) | PROVIDERS: ATTEND Psychiatry & Neurology Neurology | DX: G95.9 Disease of spinal cord, unspecified (principal) ==

== ENCOUNTER → 2023-07-23 | Outpatient (CLI) | payer BC ==
[~2023-07-23] MED LIST changes: +DIAZ-508 PO; -DIAZ10TA PO
== END ==
LOC: LAB 11:11
PROVIDERS: ATTEND Internal Medicine Rheumatology
DX: R76.0 Raised antibody titer (principal); R53.83 Other fatigue